=== PATIENT | female | born 1970 | race Two or more races ===

== ENCOUNTER 2019-11-09 15:44 | Inpatient (IN) | payer MEDICAID ==
[~2019-11-09] VITALS: Ht 149.9 cm; Wt 44.9 kg
[2019-11-09 15:46] VITALS: BP 112/64
--- NOTE | 2019-11-09 15:46 | NUR ---
ED Nurse Note: Patient brought in by RA29 from home c/o generalized weakness and hypotension (systolic 93). Per EMS, IIVF 500cc bolus given en route, BP improved. Pt also c/o dizziness and uncontrolled DM for the past few days, BS 290. Pt is on DM medication and insulin but missed dose today. Pt was recently dc from [facility] due to gallstones and mild pancreatitis. AAOx4, verbally responsive. No SOB. Afebrile. Pt placed on monitoring tech. ERMD at bedside.
--- NOTE | 2019-11-09 15:54 | Emergency Room Report ---
History of Present Illness General Chief Complaint: Generalized Weakness Source: Patient Present Illness HPI Disclaimer: Please note that this report is being documented using [employer] technology. This can lead to erroneous entry secondary to incorrect interpretation by the dictating instrument. HPI: 49-year-old female history of diabetes and gallstones presents for evaluation of weakness and unstable blood sugar readings. The patient states she was recently admitted to [facility] 3 days ago for symptomatic gallstones and mild pancreatitis. She was discharged and scheduled to follow- up with her PMD. She tested negative for COVID-19 on that hospitalization. Since leaving the hospital she notes persistent nausea, decreased appetite, generalized weakness. She felt lightheaded when standing but did not syncopized. Denies cough, fever, chills, vomiting, diarrhea. Abdominal pain improved. States her blood sugar has not been well controlled lately ranging from 70-550 over the past few days. She was found slightly hypotensive by EMS with systolics in the low 90s improved with a 500 cc bolus. Blood sugars were in the 230s. Denies head injury, headache, dysuria, hematuria. Denies drug or alcohol use. Denies vertiginous symptoms. Denies focal weakness. 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 EOMI. PERRLA. Anicteric sclera. Dry mucous membranes. Cardiovascular: Mild tachycardia. S1 and S2 normal. No murmur appreciated Resp: Normal work of breathing. No cough, wheezing or crackles appreciated Abdomen: Abdomen is soft, nondistended. Nontender Skin: Intact. No abrasions, laceration or rash over the exposed skin MSK: Normal tone and bulk. Moving all extremities. No obvious deformity. Neuro: Awake and alert. Mentating appropriately. Medical Decision Making Diagnostic Impression: Primary Impression: Hyperglycemia Additional Impressions: Uncontrolled diabetes mellitus VICTOR HUGO (acute kidney injury) Dehydration UTI (urinary tract infection) ER Course Is a 49-year-old female presenting for evaluation of generalized weakness and uncontrolled blood sugar levels over the past few days. Differential includes was not limited to dehydration, malnutrition, anemia, viral syndrome, hyperglycemia, hypoglycemia, electrolyte abnormality, DKA, HHS, pancreatitis, hypothyroidism, cholecystitis to name a few. Patient receiving IV fluids. She arrives tachycardic but blood pressures are within normal limits. EKG is nonischemic. Labs have returned showing hyperglycemia without anion gap, acute kidney injury consistent with hypovolemia from dehydration. Continue IV fluids. No evidence of DKA at this time. Chest x-ray unremarkable. Patient will be admitted to panel physicianSandra. 1725: Urinalysis consistent with an acute urinary tract infection. Patient treated with Rocephin and will send for culture and sensitivity. Admitting team updated. Laboratory Tests Test 11/09/19 16:00 11/09/19 16:02 11/09/19 16:52 White Blood Count 6.9 K/UL (4.8-10.8) Red Blood Count 4.02 M/UL (4.20-5.40) L Hemoglobin 11.4 G/DL (12.0-16.0) L Hematocrit 34.7 % (37.0-47.0) L Mean Corpuscular Volume 86 FL (80-99) Mean Corpuscular Hemoglobin 28.4 PG (27.0-31.0) Mean Corpuscular Hemoglobin Concent 32.9 G/DL (32.0-36.0) Red Cell Distribution Width 12.5 % (11.6-14.8) Platelet Count 344 K/UL (150-450) Mean Platelet Volume 6.7 FL (6.5-10.1) Neutrophils (%) (Auto) 57.3 % (45.0-75.0) Lymphocytes (%) (Auto) 32.5 % (20.0-45.0) Monocytes (%) (Auto) 8.0 % (1.0-10.0) Eosinophils (%) (Auto) 1.0 % (0.0-3.0) Basophils (%) (Auto) 1.1 % (0.0-2.0) Sodium Level 137 MMOL/L (136-145) Potassium Level 5.0 MMOL/L (3.5-5.1) Chloride Level 101 MMOL/L (98-107) Carbon Dioxide Level 26 MMOL/L (21-32) Anion Gap 10 mmol/L (5-15) Blood Urea Nitrogen 34 mg/dL (7-18) H Creatinine 1.6 MG/DL (0.55-1.30) H Estimated Glomerular Filtration Rate 34.0 mL/min (>60) Glucose Level 310 MG/DL (74-106) H Calcium Level 9.1 MG/DL (8.5-10.1) Phosphorus Level 5.0 MG/DL (2.5-4.9) H Magnesium Level 2.2 MG/DL (1.8-2.4) Total Bilirubin 0.3 MG/DL (0.2-1.0) Aspartate Amino Transferase (AST) 12 U/L (15-37) L Alanine Aminotransferase (ALT) 12 U/L (12-78) Alkaline Phosphatase 72 U/L (46-116) Troponin I 0.000 ng/mL (0.000-0.056) Total Protein 7.4 G/DL (6.4-8.2) Albumin 3.6 G/DL (3.4-5.0) Globulin 3.8 g/dL Albumin/Globulin Ratio 0.9 (1.0-2.7) L Lipase 304 U/L (73-393) Thyroid Stimulating Hormone (TSH) 1.286 uiU/mL (0.358-3.740) Serum Alcohol < 3 mg/dL Acetone Level Negative (NEGATIVE) POC Whole Blood Glucose 282 MG/DL (74-106) H Urine Color Pale yellow Urine Appearance Cloudy Urine pH 5 (4.5-8.0) Urine Specific [place] 1.015 (1.005-1.035) Urine Protein 2+ (NEGATIVE) H Urine Glucose (UA) 3+ (NEGATIVE) H Urine Ketones Negative (NEGATIVE) Urine Blood 2+ (NEGATIVE) H Urine Nitrite Negative (NEGATIVE) Urine Bilirubin Negative (NEGATIVE) Urine Urobilinogen Normal MG/DL (0.0-1.0) Urine Leukocyte Esterase 3+ (NEGATIVE) H Urine RBC 2-4 /HPF (0 - 2) H Urine WBC 20-30 /HPF (0 - 2) H Urine Squamous Epithelial Cells Many /LPF (NONE/OCC) H Urine Bacteria Many /HPF (NONE) H Urine Opiates Screen Negative (NEGATIVE) Urine Barbiturates Screen Negative (NEGATIVE) Phencyclidine (PCP) Screen Negative (NEGATIVE) Urine Amphetamines Screen Negative (NEGATIVE) Urine Benzodiazepines Screen Negative (NEGATIVE) Urine Cocaine Screen Negative (NEGATIVE) Urine Marijuana (THC) Screen Negative (NEGATIVE) EKG Diagnostic Results EKG Time: 15:52 Rate: tachycardiac Rhythm: NSR ST Segments: no acute changes Other Impression Sinus tachycardia, slight right axis. Normal intervals. QTc interval [address] segment changes. Rhythm Strip Diag. Results Rhythm Strip Time: 15:52 EP Interpretation: yes Rate: 103 Rhythm: NSR, no PVC's, no ectopy Chest X-Ray Diagnostic Results Chest X-Ray Diagnostic Results : Chest X-Ray Ordered: Yes # of Views/Limited/Complete: 1 View Indication: Other - Weakness EP Interpretation: Yes Interpretation: no consolidation, no effusion, no pneumothorax, no acute cardiopulmonary disease Impression: No acute disease Electronically Signed by: Electronically signed by Dr. Fantasma Null Last Vital Signs Date Time Temp Pulse Resp B/P (MAP) Pulse Ox O2 Delivery O2 Flow Rate FiO2 11/09/19 15:41 98.4 104 18 112/64 (80) 97 Room Air Disposition: ADMITTED INPATIENT Condition: Stable Fantasma Null MD Nov 09, 2019 15:54
--- NOTE | 2019-11-09 16:00 | NUR ---
ED Nurse Note: IV line established. Blood specimen collected and sent to lab.
--- NOTE | 2019-11-09 16:05 | NUR ---
ED Nurse Note: Xray at bedside.
--- NOTE | 2019-11-09 16:10 | NUR ---
ED Nurse Note: PT.'S SISTER LUCIO:
[2019-11-09 16:14] LABS: BASOPHILS % (AUTO) 1.1 % (0.0-2.0); HEMATOCRIT 34.7 % (37.0-47.0); HEMOGLOBIN 11.4 G/DL (12.0-16.0); LYMPHOCYTES % (AUTO) 32.5 % (20.0-45.0); MEAN CORPUSCULAR VOLUME 86 FL (80-99); NEUTROPHILS % (AUTO) 57.3 % (45.0-75.0); PLATELET COUNT 344 K/UL (150-450); RED BLOOD COUNT 4.02 M/UL (4.20-5.40); RED CELL DISTRIBUTION WIDTH 12.5 % (11.6-14.8); WHITE BLOOD COUNT 6.9 K/UL (4.8-10.8)
[2019-11-09 16:26] LABS: ANION GAP 10 mmol/L (5-15); BLOOD UREA NITROGEN 34 mg/dL (7-18); CALCIUM 9.1 MG/DL (8.5-10.1); CARBON DIOXIDE 26 MMOL/L (21-32); CHLORIDE 101 MMOL/L (98-107); CREATININE 1.6 MG/DL (0.55-1.30); SODIUM 137 MMOL/L (136-145)
[2019-11-09 16:39] LABS: ALANINE AMINOTRANSFERASE 12 U/L (12-78); ALBUMIN 3.6 G/DL (3.4-5.0); ALBUMIN/GLOBULIN RATIO 0.9 (1.0-2.7); ALKALINE PHOSPHATASE 72 U/L (46-116); ASPARTATE AMINO TRANSFERASE 12 U/L (15-37); BILIRUBIN,TOTAL 0.3 MG/DL (0.2-1.0)
--- NOTE | 2019-11-09 16:52 | NUR ---
ED Nurse Note: Urine specimen collected and sent to lab.
[2019-11-09 17:13] LABS: APPEARANCE,URINE CLOUDY; BILIRUBIN, URINE NEGATIVE (NEGATIVE); COLOR,URINE PALE YELLOW; GLUCOSE, URINE (UA) 3+ (NEGATIVE); KETONES,URINE NEGATIVE (NEGATIVE); LEUKOCYTE ESTERASE ,URINE 3+ (NEGATIVE); NITRITE,URINE NEGATIVE (NEGATIVE); PH,URINE 5 (4.5-8.0); PROTEIN,URINE 2+ (NEGATIVE); UROBILINOGEN,URINE NORMAL MG/DL (0.0-1.0)
[2019-11-09] MEDS ORDERED: cefTRIAXone 1 GM in NS 55 ML IVPB ONE (17:30)
[2019-11-09] MEDS ORDERED: NOVOLIN R100 UNIT/1 SUBQ (17:31)
[2019-11-09] MEDS ORDERED: SIMVASTATIN5 MG ORAL (17:31)
[2019-11-09] MEDS ORDERED: METFORMIN HCL500 M1 ORAL (17:31)
[2019-11-09] MEDS ORDERED: LISINOPRIL10 MG ORAL (17:31)
--- NOTE | 2019-11-09 17:50 | NUR ---
ED Nurse Note: Report given to Gregg MANCINI.
--- NOTE | 2019-11-09 17:55 | NUR ---
TRANSFER TO FLOOR: Patient transferred to [facility]. Report given to Gregg MANCINI. Pt AAOx4, verbally responsive. No SOB. IV line on left hand 18g patent and intact. No skin issues. Med recon done. All belongings sent with the patient.
--- NOTE | 2019-11-09 17:56 | Diagnostic Imaging Report ---
Indication: As pain Technique: One view of the chest Comparison: none Findings: Lungs and pleural spaces are clear. Heart size is normal. Impression: No acute process
--- NOTE | 2019-11-09 18:00 | NUR ---
NURSE NOTES: received report from ADDIS [place]. patient will be admitted to room 410-2 under [place],
--- NOTE | 2019-11-09 18:23 | NUR ---
NURSE NOTES: patient was admitted to room 410-2 via gurney from ER under [place]. Dx of uncontrolled DM, weakness. A&Ox4, verbally responsive. no respiratory distress noted on room air. no c/o pain at this time. BS 310 at ER. no s/sx of hyperglycemia at this time. c/o weak. IV on Left hand 18g. intact. Skin intact. no pressure injury noted. ambulatory. fall risk. sing on door. bed in the lowest position and locked. call light within reach. will continue to provide plan of care.
--- NOTE | 2019-11-09 18:55 | NUR ---
NURSE NOTES: Checked and counted belongings with patient. saul $119.
--- NOTE | 2019-11-09 18:55 | NUR ---
CHARGE NURSE NOTE: Spoke with ([facility]). He will put admission order soon.
[2019-11-09] MEDS ORDERED: Milk of Magnesia 30ml Ud ORAL PRN (19:00)
[2019-11-09] MEDS ORDERED: Metoclopramide 10mg/2ml Inj IVP PRN (19:00)
--- NOTE | 2019-11-09 19:22 | NUR ---
HAND-OFF: Report given to ADDIS Chavez.
[2019-11-09 20:00] VITALS: BP 126/77
--- NOTE | 2019-11-09 20:00 | NUR ---
NURSE NOTES: Patient received in bed, awake, orientedx4. C/o weakness, numbness and tingling on left leg. Bedside commode provided for patient d/t high fall risk. Patient stated she fell in the bathroom sitting down 7/6 because of sudden weakness in her leg. Attempted to reconcile home medication, patient does not remember the dosage of her medications. Patient is educated on fall risk, instructed to call for assistance prior to getting out of bed. Verbalized understanding. Call light and light cord within reach.
[2019-11-09] MEDS: Levemir Flexpen SUBQ SCH (20:34)
[2019-11-09] MEDS: NovoLOG Insulin Flexpen SUBQ SCH (20:34)
[2019-11-09] MEDS: Heparin 5000 units/ml inj SUBQ SCH (20:37)
[2019-11-09] MEDS ORDERED: NovoLOG Insulin Flexpen SUBQ SCH ×2 (21:00)
[2019-11-09 23:15] VITALS: BP 123/62
--- NOTE | 2019-11-09 23:53 | History and Physical ---
History of Present Illness General Reason for Hospitalization: Generalized Weakness Present Illness HPI A 49yo F with known history of diabetes reported to the hospital for generalized weakness and poor PO intake. She states for the past few days has been bed bound. She claims upon standing she gets dizzy and that is the reason she reported to the ED. She was found to have a suspected UTI in ED and give Rocephin. Her BG was 310 with a normal anion gap and bicarbonate. She was noted for tachycardia. Otherwise denies CP, SOB, Abdominal pain, Chills , fever, night sweats, or peripheral edema. Allergies: Coded Allergies: No Known Allergies (Unverified , 11/09/19) COVID-19 Screening Contact w/high risk pt: No Recent Travel to affected area: No Experienced COVID-19 symptoms?: No Medication History Scheduled Insulin Regular, Human* (Novolin R*), 0 SUBQ .SLIDING SCALE, (Reported) Lisinopril* (Lisinopril*), Unknown Dose ORAL DAILY, (Reported) Metformin Hcl* (Metformin Hcl*), Unknown Dose ORAL TWICE A DAY, (Reported) Simvastatin (Zocor), Unknown Dose ORAL BEDTIME, (Reported) Patient History Healthcare decision maker N Resuscitation status Advanced Directive on File Review of Systems Constitutional: Reports: weakness Eye: Reports: no symptoms ENT: Reports: no symptoms Respiratory: Reports: no symptoms Cardiovascular: Reports: no symptoms Gastrointestinal: Reports: no symptoms Genitourinary: Reports: dysuria Musculoskeletal: Reports: no symptoms Skin: Reports: no symptoms Psychiatric: Reports: no symptoms Neurological: Reports: no symptoms Endocrine: Reports: increased urine Physical Exam General Appearance: WD/WN, alert Lines, tubes and drains: peripheral HEENT: normocephalic, atraumatic Neck: non-tender, normal alignment Respiratory/Chest: chest wall non-tender, lungs clear Cardiovascular/Chest: normal peripheral pulses, tachycardia Abdomen: normal bowel sounds, non tender, soft Extremities: normal range of motion, non-tender, normal inspection, no calf tenderness Skin Exam: normal pigmentation 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 Last 24 Hour Vital Signs Date Time Temp Pulse Resp B/P (MAP) Pulse Ox O2 Delivery O2 Flow Rate FiO2 11/09/19 23:15 97.7 112 16 123/62 (82) 97 11/09/19 21:06 Room Air 11/09/19 20:00 97.3 113 16 126/77 (93) 100 11/09/19 17:55 98.4 106 19 122/59 98 Room Air 11/09/19 15:46 104 18 Room Air 11/09/19 15:46 98.4 104 18 112/64 97 Room Air 11/09/19 15:41 98.4 104 18 112/64 (80) 97 Room Air Laboratory Tests Test 11/09/19 16:00 11/09/19 16:02 11/09/19 16:52 White Blood Count 6.9 K/UL (4.8-10.8) Red Blood Count 4.02 M/UL (4.20-5.40) L Hemoglobin 11.4 G/DL (12.0-16.0) L Hematocrit 34.7 % (37.0-47.0) L Mean Corpuscular Volume 86 FL (80-99) Mean Corpuscular Hemoglobin 28.4 PG (27.0-31.0) Mean Corpuscular Hemoglobin Concent 32.9 G/DL (32.0-36.0) Red Cell Distribution Width 12.5 % (11.6-14.8) Platelet Count 344 K/UL (150-450) Mean Platelet Volume 6.7 FL (6.5-10.1) Neutrophils (%) (Auto) 57.3 % (45.0-75.0) Lymphocytes (%) (Auto) 32.5 % (20.0-45.0) Monocytes (%) (Auto) 8.0 % (1.0-10.0) Eosinophils (%) (Auto) 1.0 % (0.0-3.0) Basophils (%) (Auto) 1.1 % (0.0-2.0) Sodium Level 137 MMOL/L (136-145) Potassium Level 5.0 MMOL/L (3.5-5.1) Chloride Level 101 MMOL/L (98-107) Carbon Dioxide Level 26 MMOL/L (21-32) Anion Gap 10 mmol/L (5-15) Blood Urea Nitrogen 34 mg/dL (7-18) H Creatinine 1.6 MG/DL (0.55-1.30) H Estimat Glomerular Filtration Rate 34.0 mL/min (>60) Glucose Level 310 MG/DL (74-106) H Calcium Level 9.1 MG/DL (8.5-10.1) Phosphorus Level 5.0 MG/DL (2.5-4.9) H Magnesium Level 2.2 MG/DL (1.8-2.4) Total Bilirubin 0.3 MG/DL (0.2-1.0) Aspartate Amino Transf (AST/SGOT) 12 U/L (15-37) L Alanine Aminotransferase (ALT/SGPT) 12 U/L (12-78) Alkaline Phosphatase 72 U/L (46-116) Troponin I 0.000 ng/mL (0.000-0.056) Total Protein 7.4 G/DL (6.4-8.2) Albumin 3.6 G/DL (3.4-5.0) Globulin 3.8 g/dL Albumin/Globulin Ratio 0.9 (1.0-2.7) L Lipase 304 U/L (73-393) Thyroid Stimulating Hormone (TSH) 1.286 uiU/mL (0.358-3.740) Serum Alcohol < 3 mg/dL Acetone Level Negative (NEGATIVE) POC Whole Blood Glucose 282 MG/DL (74-106) H Urine Color Pale yellow Urine Appearance Cloudy Urine pH 5 (4.5-8.0) Urine Specific [place] 1.015 (1.005-1.035) Urine Protein 2+ (NEGATIVE) H Urine Glucose (UA) 3+ (NEGATIVE) H Urine Ketones Negative (NEGATIVE) Urine Blood 2+ (NEGATIVE) H Urine Nitrite Negative (NEGATIVE) Urine Bilirubin Negative (NEGATIVE) Urine Urobilinogen Normal MG/DL (0.0-1.0) Urine Leukocyte Esterase 3+ (NEGATIVE) H Urine RBC 2-4 /HPF (0 - 2) H Urine WBC 20-30 /HPF (0 - 2) H Urine Squamous Epithelial Cells Many /LPF (NONE/OCC) H Urine Bacteria Many /HPF (NONE) H Urine Opiates Screen Negative (NEGATIVE) Urine Barbiturates Screen Negative (NEGATIVE) Phencyclidine (PCP) Screen Negative (NEGATIVE) Urine Amphetamines Screen Negative (NEGATIVE) Urine Benzodiazepines Screen Negative (NEGATIVE) Urine Cocaine Screen Negative (NEGATIVE) Urine Marijuana (THC) Screen Negative (NEGATIVE) Microbiology Date/Time Source Procedure Growth Status 11/09/19 17:35 Rectum Received Height (Feet): 4 Height (Inches): 11.00 Weight (Pounds): 102 Medications Current Medications Medications (Trade) Dose Ordered Sig/Jayro Route PRN Reason Start Time Stop Time Status Last Admin Dose Admin Acetaminophen (Tylenol) 650 mg Q4H PRN ORAL Mild Pain (Pain Scale 1-3) 11/09/19 19:00 12/09/19 18:59 Acetaminophen (Tylenol) 650 mg Q4H PRN ORAL Temp >100.5 11/09/19 19:00 12/09/19 18:59 Dextrose (Dextrose 50%) 25 ml Q30M PRN IV Hypoglycemia 11/09/19 19:00 02/07/20 18:59 Dextrose (Dextrose 50%) 50 ml Q30M PRN IV Hypoglycemia 11/09/19 19:00 02/07/20 18:59 Heparin Sodium (Porcine) (Heparin 5000 units/ml) 5,000 units EVERY 12 HOURS SUBQ 11/09/19 21:00 12/24/19 20:59 Insulin Aspart (NovoLOG) BEFORE MEALS AND HS SUBQ 11/09/19 21:00 02/07/20 20:59 11/09/19 20:34 Insulin Aspart (NovoLOG) 5 units NOVOTIAC SUBQ 11/10/19 06:30 02/08/20 06:29 Insulin Detemir (Levemir) 15 units BEDTIME SUBQ 11/09/19 21:00 02/07/20 20:59 11/09/19 20:34 Magnesium Hydroxide (Mom) 30 ml HSPRN PRN ORAL Constipation 11/09/19 19:00 12/09/19 18:59 Metoclopramide HCl (Reglan) 10 mg Q6H PRN IVP Nausea & Vomiting 11/09/19 19:00 12/09/19 18:59 Sodium Chloride 1,000 ml @ 150 mls/hr Q6H40M IVLG 11/09/19 19:57 11/10/19 19:56 11/09/19 19:48 Assessment/Plan Problem List: (1) Uncontrolled diabetes mellitus Assessment & Plan: ORDERS - Continue on sliding scale - Obtain A1c - Continue IVF 150ml/hr overnight - Start gabapentin 100mg TID - Re examine in the morning ICD Codes: E11.65 - Type 2 diabetes mellitus with hyperglycemia SNOMED: 29261495, 386825978 (2) Weakness Assessment & Plan: Management as above. Per examination its non focal. Strength 4/5 globally. ICD Codes: R53.1 - Weakness SNOMED: 66332866 (3) Dehydration Assessment & Plan: management as above ICD Codes: E86.0 - Dehydration SNOMED: 15686860, 0588982 (4) UTI (urinary tract infection) Assessment & Plan: Note many sq epithelium. Await for cultures Since symptomatic continue to treat with rocephin. ICD Codes: N39.0 - Urinary tract infection, site not specified SNOMED: 81357207 (5) VICTOR HUGO (acute kidney injury) Assessment & Plan: managment as above ICD Codes: N17.9 - Acute kidney failure, unspecified SNOMED: 30522828, 7162273 Jairon Red D.O. Nov 09, 2019 23:53
--- NOTE | 2019-11-10 00:12 | NUR ---
NURSE NOTES: Patient seen by Dr. Red at bedside.
--- NOTE | 2019-11-10 03:17 | NUR ---
HAND-OFF: Report given to Sadie MANCINI. Addendum: 11/10/19 at 0317 by YURI FRANKLIN RN RN Endorsed patient as high fall risk. Bed alarm on, call light within reach.
--- NOTE | 2019-11-10 03:19 | NUR ---
NURSE NOTES: Received report on the patient from Kathy RN, patient is stable at this time, awake, alert and oriented x4, able to make her needs known, fall precautions are implemented, call light is within reach, bed is lowered, locked, alarm is on, will continue to monitor for comfort and safety.
[2019-11-10 04:00] VITALS: BP 128/74
[2019-11-10] MEDS: NovoLOG Insulin Flexpen SUBQ SCH ×7 (05:31→20:20)
[2019-11-10 06:29] LABS: BASOPHILS % (AUTO) 1.1 % (0.0-2.0); EOSINOPHILS % (AUTO) 1.7 % (0.0-3.0); HEMATOCRIT 32.5 % (37.0-47.0); HEMOGLOBIN 10.6 G/DL (12.0-16.0); LYMPHOCYTES % (AUTO) 36.9 % (20.0-45.0); MEAN CORPUSCULAR VOLUME 89 FL (80-99); MONOCYTES % (AUTO) 8.3 % (1.0-10.0); NEUTROPHILS % (AUTO) 52.1 % (45.0-75.0); PLATELET COUNT 338 K/UL (150-450); RED BLOOD COUNT 3.65 M/UL (4.20-5.40); RED CELL DISTRIBUTION WIDTH 11.5 % (11.6-14.8); WHITE BLOOD COUNT 5.9 K/UL (4.8-10.8)
[2019-11-10] MEDS ORDERED: Insulin NPH SUBQ SCH (06:30)
[2019-11-10 06:38] LABS: ALANINE AMINOTRANSFERASE 12 U/L (12-78); ALBUMIN 3.2 G/DL (3.4-5.0); ALBUMIN/GLOBULIN RATIO 0.9 (1.0-2.7); ALKALINE PHOSPHATASE 61 U/L (46-116); ANION GAP 8 mmol/L (5-15); ASPARTATE AMINO TRANSFERASE 9 U/L (15-37); BILIRUBIN,TOTAL 0.2 MG/DL (0.2-1.0); BLOOD UREA NITROGEN 17 mg/dL (7-18); CALCIUM 8.5 MG/DL (8.5-10.1); CARBON DIOXIDE 27 MMOL/L (21-32); CHLORIDE 108 MMOL/L (98-107); CREATININE 0.8 MG/DL (0.55-1.30); POTASSIUM 4.6 MMOL/L (3.5-5.1); SODIUM 143 MMOL/L (136-145)
--- NOTE | 2019-11-10 07:21 | NUR ---
HAND-OFF: Report given to Chuck MANCINI.
--- NOTE | 2019-11-10 07:48 | NUR ---
NURSE NOTES: Patient awake, alert x4; on room air, no sing of distress and shortness of breath; no sing of chest pain; IV Left-Hand NS @150cc running; bed side [place] within reach; per report patient complain of numbness on Left Left and MD aware; side rails up x2, breaks engaged, bed at lowest position; call light within reach; will keep monitoring blood sugar as scheduled;
[2019-11-10 08:00] VITALS: BP 152/75
[2019-11-10] MEDS: Heparin 5000 units/ml inj SUBQ SCH ×2 (09:02→20:19)
[2019-11-10] MEDS: Lisinopril 10mg tab ORAL SCH (09:13)
--- NOTE | 2019-11-10 11:33 | NUR ---
CASE MANAGEMENT: INITIAL REVIEW 49YR OLD FEMALE BIBA FROM HOME CC: GENERALIZED WEAKNESS; DIZZINESS SI:HYPERGLYCEMIA . UNCONTROLLED DM . UTI . VICTOR HUGO 98.5 104 18 112/64 97% ON RA BUN/CREAT 34/1.6 BG 310 PHOS 5.0 URINE CX + GRAM NEG BACILLUS IS: IVF NS BOLUS X2 IV ROCEPHIN X1 CHEST X-RAY- No acute process \: 4E MED SURG UNIT DCP:HOME WHEN STABLE CASE MANAGEMENT: REVIEW 11/10/19 SI:HYPERGLYCEMIA . UNCONTROLLED DM . UTI . VICTOR HUGO 98.7 100 19 152/75 99% ON RA HA1C 9.0 ALB 3.2 IS: IV NS @150ML/HR LISINOPRIL PO QD HEPARIN SQ BID NEURONTIN PO TID LEVEMIR SQ QHS \: 4E MED SURG UNIT DCP:HOME WHEN STABLE
[2019-11-10 12:00] VITALS: BP 139/62
--- NOTE | 2019-11-10 13:00 | Consultation ---
DATE OF CONSULTATION: 11/10/2019 ENDOCRINOLOGY CONSULTATION CONSULTING PHYSICIAN: Héctor Conway MD. REFERRING PHYSICIAN: Timo Flores MD. REASON FOR CONSULTATION: Diabetes management. HISTORY OF PRESENT ILLNESS: The patient is a 49-year-old female with history of diabetes, noncompliance, who presented to the hospital with generalized weakness and poor p.o. intake. The patient has been bedbound in the past few days, has been getting dizzy. She was found to have suspected UTI in the emergency department and started on Rocephin. Glucose was 310 without any evidence of diabetic ketoacidosis. The patient was tachycardic, started on IV fluid, admitted to the floor for observation and treatment, and I was called to manage diabetes. Last night, she was given Levemir 15 units. This morning, glucose is 86. PAST MEDICAL HISTORY: 1. Type 2 diabetes. 2. Hypertension. 3. Hyperlipidemia. PAST SURGICAL HISTORY: None. FAMILY HISTORY: No diabetes. SOCIAL HISTORY: Denies any smoking, alcohol, or drug use. REVIEW OF SYSTEMS: As per HPI. LABORATORY DATA: Sodium 137, potassium 5, chloride 101, bicarb 26, BUN 34, creatinine 1.6. Glucose of 310. TSH of 1.3. Lipase of 304. PHYSICAL EXAMINATION: VITAL SIGNS: Blood pressure 128/74, heart rate 99, respiratory rate of 18, temperature 98.7. HEENT: Pupils are equal and reactive to light. Sclerae are anicteric. NECK: No JVD. HEART: Regular. LUNGS: Clear. ABDOMEN: Positive bowel sounds. EXTREMITIES: No clubbing, cyanosis, or edema. DIAGNOSES: 1. Diabetes, out of control. 2. VICTOR HUGO. 3. UTI. 4. Noncompliance with medication. PLAN: 1. Continue with Levemir 15 units at bedtime. 2. Continue NovoLog 5 units before each meal. 3. Continue to hold oral hypoglycemic agents until the kidney is recovered with IV hydration. 4. Hypoglycemia protocol has been ordered. 5. Check hemoglobin A1c. 6. I will follow the patient closely during her hospital stay. Thank you, Dr. Flores, for the courtesy of this consultation. Héctor Conway M.D. DR: RODRI JOB#: [id number] CC: FIDENCIO
--- NOTE | 2019-11-10 14:22 | General Progress Note ---
Assessment/Plan Problem List: (1) UTI (urinary tract infection) ICD Codes: N39.0 - Urinary tract infection, site not specified SNOMED: 80892574 (2) VICTOR HUGO (acute kidney injury) ICD Codes: N17.9 - Acute kidney failure, unspecified SNOMED: 38625739, 7934834 (3) Hyperglycemia ICD Codes: R73.9 - Hyperglycemia, unspecified SNOMED: 58963105 (4) Weakness ICD Codes: R53.1 - Weakness SNOMED: 89280062 (5) Uncontrolled diabetes mellitus ICD Codes: E11.65 - Type 2 diabetes mellitus with hyperglycemia SNOMED: 43734308, 566414371 (6) Dehydration ICD Codes: E86.0 - Dehydration SNOMED: 32117667, 3869175 Status: doing well, stable, progressing Assessment/Plan: #Gram negative UTI #Weakness -Follow up culture speciation -Continue with Rocephin 1g q24 hours -Trend leukocytes # Uncontrolled DM # Hyperglycemia #Neuropathy -A1C is 9 -Iss -Levemir at bedtime -Patient education fo DM -Increase gapapentin to 300mg TID -Endocrine consult for outpatient medication recommendations. DVT ppx with subcue heparin Spen 35 min on this patient with 15 min face to face with pt eduction of Diabetes Subjective Date patient seen: Nov 10, 2019 Time patient seen: 11:00 Constitutional: Reports: no symptoms, malaise, weakness HEENT: Reports: no symptoms Cardiovascular: Reports: no symptoms Respiratory: Reports: no symptoms Genitourinary: Reports: frequency Neurologic/Psychiatric: Reports: no symptoms, paresthesia, tingling Endocrine: Reports: increased urine Hematologic/Lymphatic: Reports: no symptoms Allergies: Coded Allergies: No Known Allergies (Unverified , 11/09/19) All Systems: reviewed and negative except above Subjective Patient is feeling better since admission. Complains of some neuropathy in her feet. Objective Last 24 Hour Vital Signs Date Time Temp Pulse Resp B/P (MAP) Pulse Ox O2 Delivery O2 Flow Rate FiO2 11/10/19 12:00 97.9 100 19 139/62 (87) 99 11/10/19 09:13 152/75 11/10/19 09:00 Room Air 11/10/19 08:00 98.2 100 19 152/75 (100) 99 11/10/19 04:11 97.7 11/10/19 04:00 98.7 99 18 128/74 (92) 98 11/09/19 23:15 97.7 112 16 123/62 (82) 97 11/09/19 21:06 Room Air 11/09/19 20:00 97.3 113 16 126/77 (93) 100 11/09/19 17:55 98.4 106 19 122/59 98 Room Air 11/09/19 15:46 104 18 Room Air 11/09/19 15:46 98.4 104 18 112/64 97 Room Air 11/09/19 15:41 98.4 104 18 112/64 (80) 97 Room Air Intake and Output 11/09/19 11/10/19 19:00 07:00 Intake Total 4000 ml 1500 ml Balance 4000 ml 1500 ml Intake Oral 300 ml IV Total 4000 ml 1200 ml # Voids 3 # Bowel Movements 1 Laboratory Tests 11/09/19 16:00: White Blood Count 6.9, Red Blood Count 4.02L, Hemoglobin 11.4L, Hematocrit 34.7L , Mean Corpuscular Volume 86, Mean Corpuscular Hemoglobin 28.4, Mean Corpuscular Hemoglobin Concent 32.9, Red Cell Distribution Width 12.5, Platelet Count 344, Mean Platelet Volume 6.7, Neutrophils (%) (Auto) 57.3, Lymphocytes (% ) (Auto) 32.5, Monocytes (%) (Auto) 8.0, Eosinophils (%) (Auto) 1.0, Basophils ( %) (Auto) 1.1, Sodium Level 137, Potassium Level 5.0, Chloride Level 101, Carbon Dioxide Level 26, Anion Gap 10, Blood Urea Nitrogen 34H, Creatinine 1.6H , Estimat Glomerular Filtration Rate 34.0, Glucose Level 310H, Calcium Level 9.1 , Phosphorus Level 5.0H, Magnesium Level 2.2, Total Bilirubin 0.3, Aspartate Amino Transf (AST/SGOT) 12L, Alanine Aminotransferase (ALT/SGPT) 12, Alkaline Phosphatase 72, Troponin I 0.000, Total Protein 7.4, Albumin 3.6, Globulin 3.8, Albumin/Globulin Ratio 0.9L, Lipase 304, Thyroid Stimulating Hormone (TSH) 1.286 , Serum Alcohol < 3, Acetone Level Negative 11/09/19 16:02: POC Whole Blood Glucose 282H 11/09/19 16:52: Urine Color Pale yellow, Urine Appearance Cloudy, Urine pH 5, Urine Specific [place] 1.015, Urine Protein 2+H, Urine Glucose (UA) 3+H, Urine Ketones Negative , Urine Blood 2+H, Urine Nitrite Negative, Urine Bilirubin Negative, Urine Urobilinogen Normal, Urine Leukocyte Esterase 3+H, Urine RBC 2-4H, Urine WBC 20- 30H, Urine Squamous Epithelial Cells ManyH, Urine Bacteria ManyH, Urine Opiates Screen Negative, Urine Barbiturates Screen Negative, Phencyclidine (PCP) Screen Negative, Urine Amphetamines Screen Negative, Urine Benzodiazepines Screen Negative, Urine Cocaine Screen Negative, Urine Marijuana (THC) Screen Negative 11/09/19 18:32: POC Whole Blood Glucose 270H 11/09/19 20:32: POC Whole Blood Glucose 265H 11/10/19 05:30: POC Whole Blood Glucose 86, White Blood Count 5.9, Red Blood Count 3.65L, Hemoglobin 10.6L, Hematocrit 32.5L, Mean Corpuscular Volume 89, Mean Corpuscular Hemoglobin 29.0, Mean Corpuscular Hemoglobin Concent 32.6, Red Cell Distribution Width 11.5L, Platelet Count 338, Mean Platelet Volume 6.4L, Neutrophils (%) (Auto) 52.1, Lymphocytes (%) (Auto) 36.9, Monocytes (%) (Auto) 8.3, Eosinophils (%) (Auto) 1.7, Basophils (%) (Auto) 1.1, Sodium Level 143, Potassium Level 4.6, Chloride Level 108H, Carbon Dioxide Level 27, Anion Gap 8, Blood Urea Nitrogen 17, Creatinine 0.8, Estimat Glomerular Filtration Rate > 60 , Glucose Level 86#, Hemoglobin A1c 9.0H, Calcium Level 8.5, Total Bilirubin 0.2 , Aspartate Amino Transf (AST/SGOT) 9L, Alanine Aminotransferase (ALT/SGPT) 12, Alkaline Phosphatase 61, Total Protein 6.7, Albumin 3.2L, Globulin 3.5, Albumin/ Globulin Ratio 0.9L Height (Feet): 4 Height (Inches): 11.00 Weight (Pounds): 102 General Appearance: WD/WN, no apparent distress, alert, lethargic EENT: PERRL/EOMI, normal ENT inspection Neck: non-tender, normal alignment, supple Cardiovascular: normal rate, regular rhythm, no gallop/murmur, no JVD Respiratory/Chest: chest wall non-tender, lungs clear, normal breath sounds, no respiratory distress, no accessory muscle use Abdomen: normal bowel sounds, non tender, soft, no mass Pelvis: normal external exam Extremities: normal range of motion, non-tender, normal inspection Edema: no edema noted Arm (L), no edema noted Arm (R), no edema noted Leg (L), no edema noted Leg (R), no edema noted Pedal (L), no edema noted Pedal (R), no edema noted 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 Nov 10, 2019 14:22
--- NOTE | 2019-11-10 14:46 | NUR ---
P.T Note: P.T evaluation completed and tx initiated. Please refer to P.T evaluation for current functional status.
[2019-11-10 16:00] VITALS: BP 156/76
[2019-11-10] MEDS ORDERED: cefTRIAXone 1 GM in D5W 55 ML IVPB SCH (17:00)
--- NOTE | 2019-11-10 19:24 | NUR ---
HAND-OFF: Report given to ADDIS Solano. patient resting; call light and bed side Commod within reach;
[2019-11-10 20:00] VITALS: BP 134/70
--- NOTE | 2019-11-10 20:00 | NUR ---
NURSE NOTES: Patient sitting in chair, no complaints of pain, same c/o weakness on the leg. Assisted back to bed. Call light in reach. Will continue plan of care.
[2019-11-10] MEDS: Levemir Flexpen SUBQ SCH (20:20)
[2019-11-10 23:54] VITALS: BP 143/72
[2019-11-11 04:00] VITALS: BP 124/68
[2019-11-11] MEDS: NovoLOG Insulin Flexpen SUBQ SCH ×4 (06:22→11:58)
--- NOTE | 2019-11-11 06:47 | NUR ---
NURSE NOTES: Left message to Dr. Flores's exchange re: patient's AM blood sugar was 68 and rechecked 69... Patient was given juice and snacks. After 15 minutes, rechecked again and resulted 129. Patient does not have any hypoglycemic symptoms and is stable.
--- NOTE | 2019-11-11 07:13 | NUR ---
HAND-OFF: Report given to Dyana MANCINI.
--- NOTE | 2019-11-11 07:46 | NUR ---
NURSE NOTES: Patient alert x4; on room air, no sing of shortness of breath; no sing of chest pain; IV Left-Hand TKO; side rails up x2, breaks engaged, bed at lowest position; call light within reach; bed side Commode within reach; will keep monitoring.
[2019-11-11 08:00] VITALS: BP 126/79
[2019-11-11] MEDS: Lisinopril 10mg tab ORAL SCH (08:19)
[2019-11-11] MEDS: Heparin 5000 units/ml inj SUBQ SCH (08:21)
[2019-11-11 10:26] LABS: BASOPHILS % (AUTO) 1.2 % (0.0-2.0); HEMATOCRIT 33.3 % (37.0-47.0); HEMOGLOBIN 11.1 G/DL (12.0-16.0); LYMPHOCYTES % (AUTO) 29.7 % (20.0-45.0); MEAN CORPUSCULAR VOLUME 88 FL (80-99); MONOCYTES % (AUTO) 5.9 % (1.0-10.0); NEUTROPHILS % (AUTO) 62.2 % (45.0-75.0); PLATELET COUNT 350 K/UL (150-450); RED BLOOD COUNT 3.79 M/UL (4.20-5.40); RED CELL DISTRIBUTION WIDTH 11.4 % (11.6-14.8); WHITE BLOOD COUNT 5.3 K/UL (4.8-10.8)
[2019-11-11 10:27] LABS: ANION GAP 8 mmol/L (5-15); BLOOD UREA NITROGEN 9 mg/dL (7-18); CARBON DIOXIDE 28 MMOL/L (21-32); CHLORIDE 106 MMOL/L (98-107); CREATININE 0.8 MG/DL (0.55-1.30); POTASSIUM 4.3 MMOL/L (3.5-5.1); SODIUM 142 MMOL/L (136-145)
--- NOTE | 2019-11-11 10:34 | NUR ---
RD ASSESSMENT & RECOMMENDATIONS SEE CARE ACTIVITY FOR COMPLETE ASSESSMENT DAILY ESTIMATED NEEDS: Needs based on DM/ 45kg 25-30 kcals/kg 7071-7952 total kcals 1-1.3 g protein/kg 45-59 g total protein 25-30 mL/kg 5248-8172 total fluid mLs NUTRITION DIAGNOSIS: Altered nutrition related lab values R/T uncontrolled diabetes as evidenced by A1C of 9.0, BG 310 with U glu 3+ upon adm, +hypo and hyperglycemia, POC glu (69, 68, 156, 180) CURRENT DIET:[facility] MED PO DIET [facility]OMM[facility] + 1 carb snacks TID in b/w meals ADDITIONAL RECOMMENDATIONS: * Glucerna 1 tetra chula QD (added w/ dinner, pt may save it to have it as HS snack) * Encourage HS snack to prevent AM hypoglycemia * Consider lowering HS Levemir to prevent AM hypoglycemia * Standing wt * DM diet education and handout provided on 11/10
[2019-11-11] MEDS ORDERED: METFORMIN HCL1000 M1 ORAL (11:11)
[2019-11-11] MEDS ORDERED: MACROBID100 MG ORAL ×2 (11:11)
[2019-11-11] MEDS ORDERED: NEURONTIN300 MG ORAL (11:11)
[2019-11-11] MEDS ORDERED: ULTRA-LIGHT RO1 EACH MC (11:12)
--- NOTE | 2019-11-11 11:16 | Discharge Instructions ---
Discharge Instructions Discharge Instructions Services at Discharge: home health services Diet: diabetic calorie control Activity: light activity For Congestive Heart Failure Reminder Report to your physician any weight gain of 5 pounds or more in one week. Eric Wong M.D. Nov 11, 2019 11:16
[2019-11-11 12:00] VITALS: BP 139/71
--- NOTE | 2019-11-11 15:13 | NUR ---
NURSE NOTES: Printed package is ready to discharge this patient to home; patient stated that her son gonna pick her up after his so pick his kids from day care after 0400; Charge nurse, Elvis is aware;
--- NOTE | 2019-11-11 15:58 | NUR ---
NURSE NOTES: Patient discharge to Home; printed material regarding patient's visit, diagnosis and when to seek for medical help provided to patient; original medication prescription given to patient; Waker also provided to this patient; patient is stable upon discharge; IV access and name tag provided; belonging list crossed matched and signed by primary nurse and patient upon discharge; patient is stable upon discharge;
--- NOTE | 2019-11-11 16:00 | Discharge Summary ---
Discharge Summary Hospital Course Date of Admission Nov 09, 2019 at 16:32 Date of Discharge Nov 11, 2019 at 15:50 Admitting Diagnosis weakness, unconctrolled DM Reason for Hospitalization: UTI, uncontrolled DM HPI Consultations Endocrinology Hospital Course Aliyah Cartagena is a 49 year old female who was admitted on Nov 09, 2019 at 16:32 for Weakness,Uncontrolled Diabetes Mellitus she was found to have post sensitive e coli UTI. She improved with Rocephin. Patients blood sugars were controlled by endocrinology recommendations. She has new diabetic regiment and education was provided. She will follow with new PCP, endocrinology and ID. She was given new prescription of gabapentin for her neuropathy. She will be discharged with nitrofurantoin to complete 7 days of antibiotic for her UTI. PT evaluated her and she will be sent home with a walker. ED precautions given. Spen 35 min on this patient with 15 min face to face with pt eduction of Diabetes. Discharge Medications New Medications: Nitrofurantoin Monohyd/M-Cryst (Nitrofurantoin Haskell-Mcr 100 mg) 100 Mg Capsule 100 MG ORAL Q12H for 7 Days, #14 CAP Walker (Ultra-Light Rollator) 1 Each Each EACH MC, #1 Gabapentin (Neurontin) 300 Mg Capsule 300 MG ORAL THREE TIMES A DAY for 30 Days, #90 CAP Changed Medications: Metformin Hcl* (Metformin Hcl*) 1,000 Mg Tablet 1000 MG ORAL BID for 30 Days, #60 TAB (Changed from: Metformin Hcl* 500 Mg Tablet Unknown Dose ORAL TWICE A DAY DM) Continued Medications: Insulin Regular, Human* (Novolin R*) 100 Unit/1 Ml Vial 0 SUBQ .SLIDING SCALE for DM, UNITS (This prescription has been renewed) Lisinopril* (Lisinopril*) 10 Mg Tablet Unknown Dose ORAL DAILY for HTN, TAB (This prescription has been renewed) Simvastatin (Zocor) 5 Mg Tablet Unknown Dose ORAL BEDTIME for cholesterol, TAB (This prescription has been renewed) Discharge Condition Upon Discharge: stable Discharge Vital Signs Last Vital Signs Date Time Temp Pulse Resp B/P (MAP) Pulse Ox O2 Delivery O2 Flow Rate FiO2 11/11/19 12:00 98.2 105 18 139/71 (93) 98 11/11/19 09:00 Room Air Discharge Disposition Patient was discharged to home with son. Discharge Diagnoses: (1) UTI (urinary tract infection) (2) Uncontrolled diabetes mellitus (3) Weakness Discharge Instructions Discharge Instructions Services Upon Discharge: home health services Activity: light activity Eric Wong M.D. Nov 11, 2019 16:00
== END 2019-11-11 15:50 | disposition home or self-care (01) | DRG 420 ==
LOC: EDBD 15:44 → EMR 15:52 → 4E 16:32 → EDBEDREQ 17:23 → 4E 18:36
DX: E11.65 Type 2 diabetes mellitus with hyperglycemia (principal); N39.0 Urinary tract infection, site not specified; E86.0 Dehydration; N17.9 Acute kidney failure, unspecified; Z79.4 Long term (current) use of insulin; I10 Essential (primary) hypertension; E78.5 Hyperlipidemia, unspecified; Z91.14 Patient's other noncompliance with medication regimen; G62.9 Polyneuropathy, unspecified
CPT/HCPCS: 36415; 71045; 80048; 80053; 80307; 81003; 82009; 82962; 83036; 83690; 83735; 84100; 84443; 84484; 85025; 87081; 87086; 87181; 93005; 96361; 96365; 99285; G0480; J1815; J7030; S5561

== ENCOUNTER 2019-11-20 14:14 | Inpatient (IN) | payer MEDICAID ==
[~2019-11-20] VITALS: Ht 160 cm; Wt 44.9 kg
[~2019-11-20 14:14] MED LIST: LISINOPRIL10 MG ORAL; MACROBID100 MG ORAL; METFORMIN HCL1000 M1 ORAL; METFORMIN HCL500 M1 ORAL; NEURONTIN300 MG ORAL; NOVOLIN R100 UNIT/1 SUBQ; SIMVASTATIN5 MG ORAL; ULTRA-LIGHT RO1 EACH MC
--- NOTE | 2019-11-20 14:26 | Emergency Room Report ---
History of Present Illness General Chief Complaint: Generalized Weakness Source: Patient Present Illness HPI Patient presents after 2 syncopal episodes today. She felt nausea. She has christian right upper quadrant pain since August. She has been taking ibuprofen. The pain is 7/10 at the moment. She was experiencing the pain earlier today when she passed out. She denies vomiting or diarrhea on a regular basis. Her stools have been normal. She is on an antibiotic now for a urinary tract infection. Patient was admitted here November 10 for UTI and hyperglycemia with weakness. Patient has a history of diabetes, pancreatitis and allegedly gallstones. No fevers, chills, sore throat, chest pain, palpitations, shortness of breath, joint pain, rashes, depression, anxiety, visual changes, headache. 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 - 10/31/2019 COVID-19 Screening: Negative COVID-19 COVID-19 Testing Source: [facility]ARN Patient History Past Medical History: see triage record Social History: Denies: smoking, alcohol use, drug use Social History Narrative With family Last Menstrual Period: UNK Reviewed Nursing Documentation: PMH: Agreed; PSxH: Agreed Nursing Documentation-PMH Past Medical History: No History, Except For Hx Hypertension: Yes Hx Diabetes: Yes Review of Systems All Other Systems: negative except mentioned in HPI Physical Exam Vital Signs Date Time Temp Pulse Resp B/P (MAP) Pulse Ox O2 Delivery O2 Flow Rate FiO2 11/20/19 14:16 97.9 114 18 101/58 (72) 100 Room Air Sp02 EP Interpretation: reviewed, normal General Appearance: alert, other - Ill-appearing but not toxic Eyes: bilateral eye PERRL, bilateral eye EOMI, bilateral eye conjunctivae pale ENT: moist mucus membranes Neck: normal inspection, full range of motion, supple Respiratory: chest non-tender, lungs clear, normal breath sounds Cardiovascular #1: no edema, tachycardia Cardiovascular #2: 2+ radial (L) Gastrointestinal: normal bowel sounds, no guarding, no rebound, tenderness Genitourinary: no CVA tenderness Musculoskeletal: back normal, normal range of motion, no calf tenderness Neurologic: alert, oriented x3, grossly normal Psychiatric: depressed affect Skin: warm/dry, pallor Medical Decision Making Diagnostic Impression: Primary Impression: Syncope Qualified Codes: R55 - Syncope and collapse Additional Impressions: Transient hypotension Elevated lactic acid level ER Course Patient presents with syncopal episodes x2 today. Differential includes vasovagal, sepsis, acute myocardial infarction, volume depletion, anemia amongst others. This is a complex patient because the patient is a slightly poor historian and has comorbidities with a complex past medical history. With the right upper quadrant pain we need to exclude cholecystitis, peptic ulcer disease. Ultrasound is ordered. Rest of the work-up is EKG, x-ray and labs. Patient treated with IV hydration and repeat evaluations. Abdomen is not a surgical belly. Patient is treated with a small dose of morphine and Zofran. Patient's tachycardia slightly better but blood pressure low. Fluid bolus ordered. Low blood pressure may be related to morphine. Blood pressure better and heart rate less than 100 after fluid bolus. Labs with normal white count and slight anemia. Ultrasound with gallbladder polyp no evidence of cholecystitis. Lactic acid called at 1630. Value 2.7. Blood cultures ordered and Rocephin and Levaquin also ordered. Clinically patient is improving with fluids. Good capillary refill and blood pressure and heart rate both improved. Urine clear. Repeat lactic acid improved. Etiology of hypotension unclear. Etiology of elevated lactic acid unclear. Patient admitted for repeat evaluations, Laboratory Tests Test 11/20/19 14:24 11/20/19 17:00 11/20/19 17:22 White Blood Count 8.6 K/UL (4.8-10.8) Red Blood Count 3.90 M/UL (4.20-5.40) L Hemoglobin 11.3 G/DL (12.0-16.0) L Hematocrit 34.0 % (37.0-47.0) L Mean Corpuscular Volume 87 FL (80-99) Mean Corpuscular Hemoglobin 29.0 PG (27.0-31.0) Mean Corpuscular Hemoglobin Concent 33.3 G/DL (32.0-36.0) Red Cell Distribution Width 11.2 % (11.6-14.8) L Platelet Count 453 K/UL (150-450) H Mean Platelet Volume 6.0 FL (6.5-10.1) L Neutrophils (%) (Auto) 67.5 % (45.0-75.0) Lymphocytes (%) (Auto) 22.2 % (20.0-45.0) Monocytes (%) (Auto) 7.7 % (1.0-10.0) Eosinophils (%) (Auto) 1.5 % (0.0-3.0) Basophils (%) (Auto) 1.1 % (0.0-2.0) Prothrombin Time 10.6 SEC (9.30-11.50) Prothrombin Time INR 1.0 (0.9-1.1) Activated Partial Thromboplast Time 24 SEC (23-33) Sodium Level 140 MMOL/L (136-145) Potassium Level 4.0 MMOL/L (3.5-5.1) Chloride Level 102 MMOL/L (98-107) Carbon Dioxide Level 29 MMOL/L (21-32) Anion Gap 9 mmol/L (5-15) Blood Urea Nitrogen 17 mg/dL (7-18) Creatinine 1.1 MG/DL (0.55-1.30) Estimated Glomerular Filtration Rate 52.4 mL/min (>60) Glucose Level 118 MG/DL (74-106) H Hemoglobin A1c Pending Lactic Acid Level 2.70 mmol/L (0.4-2.0) H 1.10 mmol/L (0.66-2.22) Calcium Level 9.8 MG/DL (8.5-10.1) Magnesium Level 1.5 MG/DL (1.8-2.4) L Ferritin 56 NG/ML (8-388) Total Bilirubin 0.1 MG/DL (0.2-1.0) L Aspartate Amino Transferase (AST) 10 U/L (15-37) L Alanine Aminotransferase (ALT) 14 U/L (12-78) Alkaline Phosphatase 67 U/L (46-116) Total Creatine Kinase 33 U/L (26-308) Troponin I 0.000 ng/mL (0.000-0.056) C-Reactive Protein, Quantitative 0.8 mg/dL (0.00-0.90) Pro-B-Type Natriuretic Peptide Pending Total Protein 7.6 G/DL (6.4-8.2) Albumin 3.8 G/DL (3.4-5.0) Globulin 3.8 g/dL Albumin/Globulin Ratio 1.0 (1.0-2.7) Triglycerides Level Pending Cholesterol Level Pending LDL Cholesterol Pending HDL Cholesterol Pending Cholesterol/HDL Ratio Pending Lipase 318 U/L (73-393) Thyroid Stimulating Hormone (TSH) Pending Urine Color Yellow Urine Appearance Slightly cloudy Urine pH 5 (4.5-8.0) Urine Specific [place] 1.010 (1.005-1.035) Urine Protein 1+ (NEGATIVE) H Urine Glucose (UA) 4+ (NEGATIVE) H Urine Ketones Negative (NEGATIVE) Urine Blood Negative (NEGATIVE) Urine Nitrite Negative (NEGATIVE) Urine Bilirubin Negative (NEGATIVE) Urine Urobilinogen Normal MG/DL (0.0-1.0) Urine Leukocyte Esterase Negative (NEGATIVE) Urine RBC 0 /HPF (0 - 2) Urine WBC 0-2 /HPF (0 - 2) Urine Squamous Epithelial Cells Moderate /LPF (NONE/OCC) H Urine Bacteria Few /HPF (NONE) Urine Mucus Few /LPF (NONE/OCC) H EKG Diagnostic Results Rate: normal Rhythm: NSR ST Segments: no acute changes Rhythm Strip Diag. Results EP Interpretation: yes Rhythm: no PVC's, no ectopy, other - Sinus tachycardia Chest X-Ray Diagnostic Results Chest X-Ray Diagnostic Results : Chest X-Ray Ordered: Yes # of Views/Limited/Complete: 1 View Indication: Other EP Interpretation: Yes Interpretation: no consolidation, no effusion, no pneumothorax Impression: No acute disease Electronically Signed by: Electronically signed by Elvis Ponce MD CT/MRI/US Diagnostic Results CT/MRI/US Diagnostic Results : Imaging Test Ordered: Ultrasound abdomen Impression Gallbladder polyp Last Vital Signs Date Time Temp Pulse Resp B/P (MAP) Pulse Ox O2 Delivery O2 Flow Rate FiO2 11/20/19 18:01 97.5 89 20 98/58 (71) 98 11/20/19 18:00 Room Air Status: improved Disposition: ADMITTED INPATIENT Condition: Serious Elvis Ponce MD Nov 20, 2019 14:26
[2019-11-20 14:30] VITALS: BP 101/58
[2019-11-20] MEDS ORDERED: Morphine Sulfate 2mg/ml Inj(IV/IM USE ONLY) IVP ONE (14:30)
[2019-11-20 14:46] LABS: BASOPHILS % (AUTO) 1.1 % (0.0-2.0); EOSINOPHILS % (AUTO) 1.5 % (0.0-3.0); HEMOGLOBIN 11.3 G/DL (12.0-16.0); LYMPHOCYTES % (AUTO) 22.2 % (20.0-45.0); MEAN CORPUSCULAR VOLUME 87 FL (80-99); MONOCYTES % (AUTO) 7.7 % (1.0-10.0); NEUTROPHILS % (AUTO) 67.5 % (45.0-75.0); PLATELET COUNT 453 K/UL (150-450); RED CELL DISTRIBUTION WIDTH 11.2 % (11.6-14.8); WHITE BLOOD COUNT 8.6 K/UL (4.8-10.8)
--- NOTE | 2019-11-20 14:48 | Diagnostic Imaging Report ---
EXAM: XR Chest, 1 View CLINICAL HISTORY: SYNCOPE TECHNIQUE: Frontal view of the chest. COMPARISON: Chest radiograph on 11/09/2019 FINDINGS: Hardware: None. Lungs/pleura: Normal. No focal consolidation. No pleural effusion or pneumothorax. Heart/mediastinum: Normal. No cardiomegaly. Soft tissues: Unremarkable. Bones: No acute fracture. Upper abdomen: Normal. IMPRESSION: No acute disease identified.
[2019-11-20 14:57] LABS: ANION GAP 9 mmol/L (5-15); BLOOD UREA NITROGEN 17 mg/dL (7-18); CALCIUM 9.8 MG/DL (8.5-10.1); CARBON DIOXIDE 29 MMOL/L (21-32); CHLORIDE 102 MMOL/L (98-107); CREATININE 1.1 MG/DL (0.55-1.30); SODIUM 140 MMOL/L (136-145)
[2019-11-20 15:16] LABS: ALANINE AMINOTRANSFERASE 14 U/L (12-78); ALBUMIN 3.8 G/DL (3.4-5.0); ALKALINE PHOSPHATASE 67 U/L (46-116); ASPARTATE AMINO TRANSFERASE 10 U/L (15-37); BILIRUBIN,TOTAL 0.1 MG/DL (0.2-1.0); CREATINE KINASE 33 U/L (26-308); FERRITIN 56 NG/ML (8-388)
--- NOTE | 2019-11-20 15:43 | Diagnostic Imaging Report ---
EXAM: US Abdomen Complete CLINICAL HISTORY: ABD PAIN TECHNIQUE: Real-time ultrasound of the abdomen with image documentation. COMPARISON: No relevant prior studies available. FINDINGS: Liver: Liver diameter 13.5 cm. No visible parenchymal lesions. No intrahepatic biliary ductal dilatation. Gallbladder: 3 x 2 mm gallbladder polyp. No gallstones. No wall thickening. No pericholecystic fluid. Common bile duct: Common bile duct diameter 5.5 mm, within normal limits. Pancreas: Unremarkable as visualized. Pancreatic body and tail are obscured by bowel gas. Kidneys: Right kidney length of 11.4 cm. Left kidney length of 8.6 cm. Normal cortical thickness. No visible stones. No hydronephrosis. Spleen: Spleen length of 8.9 cm, within normal limits. Aorta: Unremarkable. Visualized portions appear unremarkable without evidence of aneurysm. Inferior vena cava: Unremarkable. Free fluid: None. IMPRESSION: 1. No acute findings. 2. 3 mm gallbladder polyp. Recommendations for 3 mm gallbladder polyp management: if the patient has risk factors* for gallbladder malignancy: follow- up ultrasound at 6 months, then yearly for 5 years. An increase in size = 2 mm: consider cholecystectomy if no risk factors for gallbladder malignancy: follow-up ultrasound at 1, 3 and 5 years *risk factors: >50 years, primary sclerosing cholangitis, [place] ethnicity, sessile polyp (including focal wall thickening >4 mm)
[2019-11-20 15:47] VITALS: BP 79/46
[2019-11-20] MEDS ORDERED: cefTRIAXone 1 GM in NS 55 ML IVPB ONE (16:30)
[2019-11-20 17:03] VITALS: BP 99/66
[2019-11-20 18:01] VITALS: BP 98/58
[2019-11-20 18:18] LABS: APPEARANCE,URINE SLIGHTLY CLOUDY; BILIRUBIN, URINE NEGATIVE (NEGATIVE); GLUCOSE, URINE (UA) 4+ (NEGATIVE); KETONES,URINE NEGATIVE (NEGATIVE); LEUKOCYTE ESTERASE ,URINE NEGATIVE (NEGATIVE); NITRITE,URINE NEGATIVE (NEGATIVE); PH,URINE 5 (4.5-8.0); PROTEIN,URINE 1+ (NEGATIVE); UROBILINOGEN,URINE NORMAL MG/DL (0.0-1.0)
[2019-11-20 18:19] LABS: COLOR,URINE YELLOW
[2019-11-20] MEDS ORDERED: Milk of Magnesia 30ml Ud ORAL PRN (19:15)
[2019-11-20] MEDS ORDERED: Metoclopramide 10mg/2ml Inj IVP PRN (19:15)
[2019-11-20] MEDS ORDERED: Miralax 17gm pkt ORAL PRN (19:15)
[2019-11-20 19:46] LABS: CHOLESTEROL 120 MG/DL (< 200); HDL CHOLESTEROL 37 MG/DL (40-60); TRIGLYCERIDES 73 MG/DL (30-150)
[2019-11-20 20:00] VITALS: BP 111/61
[2019-11-20] MEDS: NovoLOG Insulin Flexpen SUBQ SCH (21:00)
--- NOTE | 2019-11-20 21:18 | History and Physical ---
History of Present Illness General Reason for Hospitalization: Generalized Weakness Present Illness HPI A 49yo diabetic thin female who presents back after suffering syncope episodes. She has a pmhx significant for DMT2 on supplemental insulin with neuropathy. Patient states since discharge she has suffered three syncope episodes. Happens during positional changes. Associated with dizziness. + LOC. Denies loss of bladder/bowel. They are witnessed. No head trauma. She denies having a history prior to November 2019. She remains using a walker for ambulation. Her overall neuropathy pain improved on gabapentin. Claims completed her antibiotic given on discharge. Allergies: Coded Allergies: No Known Allergies (Unverified , 11/09/19) COVID-19 Screening Contact w/high risk pt: No Recent Travel to affected area: No Experienced COVID-19 symptoms?: No Medication History Scheduled Gabapentin (Neurontin), 300 MG ORAL THREE TIMES A DAY Insulin Regular, Human* (Novolin R*), 0 SUBQ .SLIDING SCALE, (Reported) Lisinopril* (Lisinopril*), Unknown Dose ORAL DAILY, (Reported) Metformin Hcl* (Metformin Hcl*), 1,000 MG ORAL BID Nitrofurantoin Monohyd/M-Cryst (Nitrofurantoin [place]-Mcr 100 mg), 100 MG ORAL Q12H Simvastatin (Zocor), Unknown Dose ORAL BEDTIME, (Reported) Durable Medical Equipment Walker (Ultra-Light Rollator), EACH , (DME) Patient History Healthcare decision maker Resuscitation status Advanced Directive on File Review of Systems Constitutional: Reports: weakness Eye: Reports: no symptoms ENT: Reports: no symptoms Respiratory: Reports: no symptoms Cardiovascular: Reports: no symptoms Gastrointestinal: Reports: nausea, vomiting Genitourinary: Reports: no symptoms Musculoskeletal: Reports: no symptoms Skin: Reports: no symptoms Psychiatric: Reports: no symptoms Neurological: Reports: no symptoms Endocrine: Reports: no symptoms Physical Exam General Appearance: WD/WN, no apparent distress, alert, thin HEENT: normocephalic, atraumatic Neck: non-tender, normal alignment, supple Respiratory/Chest: chest wall non-tender, lungs clear, normal breath sounds Cardiovascular/Chest: normal peripheral pulses, normal rate, regular rhythm Abdomen: normal bowel sounds, non tender Extremities: normal range of motion, non-tender, non-pitting, no edema Skin Exam: normal pigmentation, warm/dry 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, no motor/sensory deficits Last 24 Hour Vital Signs Date Time Temp Pulse Resp B/P (MAP) Pulse Ox O2 Delivery O2 Flow Rate FiO2 11/20/19 18:01 97.5 89 20 98/58 (71) 98 11/20/19 18:00 97.3 98 18 99/65 100 Room Air 11/20/19 17:03 97.9 99 18 99/66 100 Room Air 11/20/19 15:47 97.9 89 18 79/46 100 Room Air 11/20/19 15:03 97.9 11/20/19 14:30 97.9 110 18 101/58 100 Room Air 11/20/19 14:30 114 18 Room Air 11/20/19 14:16 97.9 114 18 101/58 (72) 100 Room Air Laboratory Tests Test 11/20/19 14:24 11/20/19 17:00 11/20/19 17:22 White Blood Count 8.6 K/UL (4.8-10.8) Red Blood Count 3.90 M/UL (4.20-5.40) L Hemoglobin 11.3 G/DL (12.0-16.0) L Hematocrit 34.0 % (37.0-47.0) L Mean Corpuscular Volume 87 FL (80-99) Mean Corpuscular Hemoglobin 29.0 PG (27.0-31.0) Mean Corpuscular Hemoglobin Concent 33.3 G/DL (32.0-36.0) Red Cell Distribution Width 11.2 % (11.6-14.8) L Platelet Count 453 K/UL (150-450) H Mean Platelet Volume 6.0 FL (6.5-10.1) L Neutrophils (%) (Auto) 67.5 % (45.0-75.0) Lymphocytes (%) (Auto) 22.2 % (20.0-45.0) Monocytes (%) (Auto) 7.7 % (1.0-10.0) Eosinophils (%) (Auto) 1.5 % (0.0-3.0) Basophils (%) (Auto) 1.1 % (0.0-2.0) Prothrombin Time 10.6 SEC (9.30-11.50) Prothromb Time International Ratio 1.0 (0.9-1.1) Activated Partial Thromboplast Time 24 SEC (23-33) Sodium Level 140 MMOL/L (136-145) Potassium Level 4.0 MMOL/L (3.5-5.1) Chloride Level 102 MMOL/L (98-107) Carbon Dioxide Level 29 MMOL/L (21-32) Anion Gap 9 mmol/L (5-15) Blood Urea Nitrogen 17 mg/dL (7-18) Creatinine 1.1 MG/DL (0.55-1.30) Estimat Glomerular Filtration Rate 52.4 mL/min (>60) Glucose Level 118 MG/DL (74-106) H Hemoglobin A1c 9.5 % (4.3-6.0) H Lactic Acid Level 2.70 mmol/L (0.4-2.0) H 1.10 mmol/L (0.66-2.22) Calcium Level 9.8 MG/DL (8.5-10.1) Magnesium Level 1.5 MG/DL (1.8-2.4) L Ferritin 56 NG/ML (8-388) Total Bilirubin 0.1 MG/DL (0.2-1.0) L Aspartate Amino Transf (AST/SGOT) 10 U/L (15-37) L Alanine Aminotransferase (ALT/SGPT) 14 U/L (12-78) Alkaline Phosphatase 67 U/L (46-116) Total Creatine Kinase 33 U/L (26-308) Troponin I 0.000 ng/mL (0.000-0.056) C-Reactive Protein, Quantitative 0.8 mg/dL (0.00-0.90) Pro-B-Type Natriuretic Peptide 34 pg/mL (0-125) Total Protein 7.6 G/DL (6.4-8.2) Albumin 3.8 G/DL (3.4-5.0) Globulin 3.8 g/dL Albumin/Globulin Ratio 1.0 (1.0-2.7) Triglycerides Level 73 MG/DL (30-150) Cholesterol Level 120 MG/DL (< 200) LDL Cholesterol 71 mg/dL (<100) HDL Cholesterol 37 MG/DL (40-60) L Cholesterol/HDL Ratio 3.2 (3.3-4.4) L Lipase 318 U/L (73-393) Thyroid Stimulating Hormone (TSH) 2.804 uiU/mL (0.358-3.740) Urine Color Yellow Urine Appearance Slightly cloudy Urine pH 5 (4.5-8.0) Urine Specific [place] 1.010 (1.005-1.035) Urine Protein 1+ (NEGATIVE) H Urine Glucose (UA) 4+ (NEGATIVE) H Urine Ketones Negative (NEGATIVE) Urine Blood Negative (NEGATIVE) Urine Nitrite Negative (NEGATIVE) Urine Bilirubin Negative (NEGATIVE) Urine Urobilinogen Normal MG/DL (0.0-1.0) Urine Leukocyte Esterase Negative (NEGATIVE) Urine RBC 0 /HPF (0 - 2) Urine WBC 0-2 /HPF (0 - 2) Urine Squamous Epithelial Cells Moderate /LPF (NONE/OCC) H Urine Bacteria Few /HPF (NONE) Urine Mucus Few /LPF (NONE/OCC) H Height (Feet): 5 Height (Inches): 3.00 Weight (Pounds): 99 Medications Current Medications Medications (Trade) Dose Ordered Sig/Jayro Route PRN Reason Start Time Stop Time Status Last Admin Dose Admin Acetaminophen (Tylenol) 650 mg Q4H PRN ORAL Mild Pain (Pain Scale 1-3) 11/20/19 19:15 12/20/19 19:14 Acetaminophen (Tylenol) 650 mg Q4H PRN ORAL Temp >100.5 11/20/19 19:15 12/20/19 19:14 Bisacodyl (Dulcolax) 10 mg HSPRN PRN RECTAL Constipation 11/20/19 19:15 02/18/20 19:14 Ceftriaxone Sodium 1 gm/ Dextrose 55 ml @ 110 mls/hr Q24H IVPB 11/21/19 09:00 11/28/19 08:59 Dextrose (Dextrose 50%) 25 ml Q30M PRN IV Hypoglycemia 11/20/19 19:15 02/18/20 19:14 Dextrose (Dextrose 50%) 50 ml Q30M PRN IV Hypoglycemia 11/20/19 19:15 02/18/20 19:14 Diphenhydramine HCl (Benadryl) 25 mg Q6H PRN ORAL Itching/Pruritis 11/20/19 19:15 12/20/19 19:14 Heparin Sodium (Porcine) (Heparin 5000 units/ml) 5,000 units EVERY 12 HOURS SUBQ 11/20/19 21:00 01/04/20 20:59 Insulin Aspart (NovoLOG) BEFORE MEALS AND HS SUBQ 11/20/19 21:00 02/18/20 20:59 Magnesium Hydroxide (Mom) 30 ml HSPRN PRN ORAL Constipation 11/20/19 19:15 12/20/19 19:14 Metoclopramide HCl (Reglan) 10 mg Q6H PRN IVP Nausea & Vomiting 11/20/19 19:15 12/20/19 19:14 Polyethylene Glycol (Miralax) 17 gm HSPRN PRN ORAL Constipation 11/20/19 19:15 12/20/19 19:14 Sodium Chloride 1,000 ml @ 100 mls/hr Q10H IVLG 11/20/19 20:07 11/21/19 20:06 Assessment/Plan Problem List: (1) Syncope Assessment & Plan: Remain on property assessment monitor IVF overnight (slight up tick of sCr/BUN) Defer on CT Brain without unilateral deficit or ROS detailing central origin Appears orthostatic hypotension in an uncontrolled diabetic Recheck orthostats thereafter IV hydration If remains + Florinef can help PT evaluation/treatment Does not appear patient has a recurrence of E. Coli UTI on UA await for culture (Received Rocephin x1) ICD Codes: R55 - Syncope and collapse SNOMED: 282233736 Qualifiers: Qualified Codes: R55 - Syncope and collapse (2) Acute kidney injury (nontraumatic) Assessment & Plan: as above ICD Codes: N17.9 - Acute kidney failure, unspecified SNOMED: 677954379337720 (3) Weakness Assessment & Plan: as above ICD Codes: R53.1 - Weakness SNOMED: 12398157 Jairon Red D.O. Nov 20, 2019 21:18
[2019-11-20] MEDS: Heparin 5000 units/ml inj SUBQ SCH (21:21)
[2019-11-21] VITALS: BP 112/57
[2019-11-21] MEDS: HYDROcodone/Acetamin 5/325 tab ORAL PRN ×2 (02:05→20:34)
[2019-11-21 04:00] VITALS: BP 121/60
[2019-11-21] MEDS: NovoLOG Insulin Flexpen SUBQ SCH ×4 (06:23→20:31)
[2019-11-21 07:21] LABS: BASOPHILS % (AUTO) 1.3 % (0.0-2.0); EOSINOPHILS % (AUTO) 1.8 % (0.0-3.0); HEMATOCRIT 31.1 % (37.0-47.0); HEMOGLOBIN 10.3 G/DL (12.0-16.0); LYMPHOCYTES % (AUTO) 39.3 % (20.0-45.0); MEAN CORPUSCULAR VOLUME 87 FL (80-99); MONOCYTES % (AUTO) 5.9 % (1.0-10.0); NEUTROPHILS % (AUTO) 51.7 % (45.0-75.0); PLATELET COUNT 354 K/UL (150-450); RED BLOOD COUNT 3.56 M/UL (4.20-5.40); RED CELL DISTRIBUTION WIDTH 11.4 % (11.6-14.8); WHITE BLOOD COUNT 6.2 K/UL (4.8-10.8)
[2019-11-21 07:38] LABS: ANION GAP 7 mmol/L (5-15); BLOOD UREA NITROGEN 16 mg/dL (7-18); CALCIUM 9.2 MG/DL (8.5-10.1); CARBON DIOXIDE 28 MMOL/L (21-32); CHLORIDE 106 MMOL/L (98-107); CREATININE 0.7 MG/DL (0.55-1.30); POTASSIUM 4.2 MMOL/L (3.5-5.1); SODIUM 141 MMOL/L (136-145)
[2019-11-21 08:00] VITALS: BP 129/69
[2019-11-21] MEDS: Heparin 5000 units/ml inj SUBQ SCH (08:36)
[2019-11-21] MEDS ORDERED: cefTRIAXone 1gm/D5W 55ml IVPB SCH ×2 (09:00)
[2019-11-21 09:40] LABS: % IRON SATURATION 18 % (15-50); IRON 51 ug/dL (50-175); TOTAL IRON BINDING CAPACITY 283 ug/dL (250-450)
--- NOTE | 2019-11-21 10:40 | General Progress Note ---
Assessment/Plan Problem List: (1) Orthostatic hypotension ICD Codes: I95.1 - Orthostatic hypotension SNOMED: 85527610 (2) Depressed affect ICD Codes: R45.89 - Other symptoms and signs involving emotional state SNOMED: 879395352 (3) RUQ abdominal pain ICD Codes: R10.11 - Right upper quadrant pain SNOMED: 049600825 (4) Elevated lactic acid level ICD Codes: R79.89 - Other specified abnormal findings of blood chemistry SNOMED: 0716713 (5) Uncontrolled diabetes mellitus ICD Codes: E11.65 - Type 2 diabetes mellitus with hyperglycemia SNOMED: 21549506, 988254428 Status: doing well, stable, progressing Assessment/Plan: 49 year old female with a PMH of uncontrolled DM, Neuropathy come to the ED for syncope. #Orthostatic hypotension #Poor PO intake - Orthostatic VS positive on admission - Fluid hydration - 2D Echo - EKG - Carotid US - Non contrast CT head - Consider fludracorizone or midodrine at a later time #Chronic RUQ pain #Gallbladder polyp -US preformed -LEFs normal -General Surgery consult #Normocytic Anemia #Unintentional Weight loss #Loss of appetite - Oncology work up - Iron Panel - Ordered ESR - Age appropriate screenings such as coloscopy - Consult to hematology oncology #Uncontrolled DM #Neuropathy -ISS -Carb consistent diet -Holding Gabapentin 300mg TID #Depression - Started on 10mg Lexapro - Consult to psychiatry SCD due to anemia evaluation PT Carb consistent diet Likely DC home wit family I spent 50 min on this patient with 20 min face to face. I preformed chart review and literature review. I coordinated whit many consultants. Discussed plan with RN. Subjective Date patient seen: Nov 21, 2019 Time patient seen: 10:14 ROS Limited/Unobtainable: No Constitutional: Reports: malaise, weakness HEENT: Reports: no symptoms Cardiovascular: Reports: no symptoms Gastrointestinal/Abdominal: Reports: abdominal pain, vomiting; Denies: black stools, tarry stools Genitourinary: Reports: no symptoms Neurologic/Psychiatric: Reports: no symptoms Hematologic/Lymphatic: Reports: anemia Allergies: Coded Allergies: No Known Allergies (Unverified , 11/09/19) All Systems: reviewed and negative except above Subjective Patient complains of RUQ pain that has been going on for a year. Objective Last 24 Hour Vital Signs Date Time Temp Pulse Resp B/P (MAP) Pulse Ox O2 Delivery O2 Flow Rate FiO2 11/21/19 08:00 90 11/21/19 08:00 98.2 89 20 129/69 (89) 96 11/21/19 04:00 97.3 93 22 121/60 (80) 99 11/21/19 04:00 90 11/21/19 00:00 97.9 97 22 112/57 (75) 100 11/21/19 00:00 116 11/20/19 22:28 Room Air 11/20/19 21:00 Room Air 11/20/19 20:00 96 11/20/19 20:00 97.7 89 20 111/61 (78) 95 11/20/19 18:01 97.5 89 20 98/58 (71) 98 11/20/19 18:00 97.3 98 18 99/65 100 Room Air 11/20/19 17:03 97.9 99 18 99/66 100 Room Air 11/20/19 15:47 97.9 89 18 79/46 100 Room Air 11/20/19 15:03 97.9 11/20/19 14:30 97.9 110 18 101/58 100 Room Air 11/20/19 14:30 114 18 Room Air 11/20/19 14:16 97.9 114 18 101/58 (72) 100 Room Air Intake and Output 11/20/19 11/21/19 19:00 07:00 Intake Total 900 ml Balance 900 ml Intake IV Total 500 ml Other 400 ml # Voids 1 3 Laboratory Tests 11/20/19 14:24: White Blood Count 8.6, Red Blood Count 3.90L, Hemoglobin 11.3L, Hematocrit 34.0L , Mean Corpuscular Volume 87, Mean Corpuscular Hemoglobin 29.0, Mean Corpuscular Hemoglobin Concent 33.3, Red Cell Distribution Width 11.2L, Platelet Count 453H, Mean Platelet Volume 6.0L, Neutrophils (%) (Auto) 67.5, Lymphocytes (%) (Auto) 22.2, Monocytes (%) (Auto) 7.7, Eosinophils (%) (Auto) 1.5, Basophils (%) (Auto) 1.1, Prothrombin Time 10.6, Prothromb Time International Ratio 1.0, Activated Partial Thromboplast Time 24, Sodium Level 140, Potassium Level 4.0, Chloride Level 102, Carbon Dioxide Level 29, Anion Gap 9, Blood Urea Nitrogen 17, Creatinine 1.1, Estimat Glomerular Filtration Rate 52.4, Glucose Level 118H, Hemoglobin A1c 9.5H, Lactic Acid Level 2.70H, Calcium Level 9.8, Magnesium Level 1.5L, Ferritin 56, Total Bilirubin 0.1L, Aspartate Amino Transf (AST/SGOT) 10L, Alanine Aminotransferase (ALT/SGPT) 14, Alkaline Phosphatase 67, Total Creatine Kinase 33, Troponin I 0.000, C-Reactive Protein, Quantitative 0.8, Pro-B-Type Natriuretic Peptide 34, Total Protein 7.6 , Albumin 3.8, Globulin 3.8, Albumin/Globulin Ratio 1.0, Triglycerides Level 73 , Cholesterol Level 120, LDL Cholesterol 71, HDL Cholesterol 37L, Cholesterol/ HDL Ratio 3.2L, Lipase 318, Thyroid Stimulating Hormone (TSH) 2.804 11/20/19 17:00: Lactic Acid Level 1.10 11/20/19 17:22: Urine Color Yellow, Urine Appearance Slightly cloudy, Urine pH 5, Urine Specific [place] 1.010, Urine Protein 1+H, Urine Glucose (UA) 4+H, Urine Ketones Negative, Urine Blood Negative, Urine Nitrite Negative, Urine Bilirubin Negative, Urine Urobilinogen Normal, Urine Leukocyte Esterase Negative, Urine RBC 0, Urine WBC 0-2, Urine Squamous Epithelial Cells ModerateH, Urine Bacteria Few, Urine Mucus FewH 11/20/19 20:52: POC Whole Blood Glucose 101 11/21/19 06:07: POC Whole Blood Glucose 143H 11/21/19 06:45: White Blood Count 6.2, Red Blood Count 3.56L, Hemoglobin 10.3L, Hematocrit 31.1L , Mean Corpuscular Volume 87, Mean Corpuscular Hemoglobin 28.9, Mean Corpuscular Hemoglobin Concent 33.1, Red Cell Distribution Width 11.4L, Platelet Count 354, Mean Platelet Volume 5.7L, Neutrophils (%) (Auto) 51.7, Lymphocytes (%) (Auto) 39.3, Monocytes (%) (Auto) 5.9, Eosinophils (%) (Auto) 1.8, Basophils (%) (Auto) 1.3, Sodium Level 141, Potassium Level 4.2, Chloride Level 106, Carbon Dioxide Level 28, Anion Gap 7, Blood Urea Nitrogen 16, Creatinine 0.7, Estimat Glomerular Filtration Rate > 60, Glucose Level 145H, Calcium Level 9.2, Iron Level 51, Total Iron Binding Capacity 283, Percent Iron Saturation 18, Unsaturated Iron Binding 232 11/21/19 06:48: Erythrocyte Sedimentation Rate [Pending] Height (Feet): 5 Height (Inches): 3.00 Weight (Pounds): 99 General Appearance: no apparent distress, alert, cachetic, alert oriented x3 EENT: PERRL/EOMI, normal ENT inspection Neck: non-tender, normal alignment, supple Cardiovascular: normal peripheral pulses, normal rate, regular rhythm, no gallop/murmur, no JVD Respiratory/Chest: lungs clear, normal breath sounds, no respiratory distress, no accessory muscle use Abdomen: normal bowel sounds, soft, no organomegaly, no mass, tender Pelvis: normal external exam Extremities: normal range of motion, non-tender Edema: no edema noted Arm (L), no edema noted Arm (R), no edema noted Leg (L), no edema noted Leg (R), no edema noted Pedal (L), no edema noted Pedal (R), no edema noted 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 Nov 21, 2019 10:40
[2019-11-21 11:58] VITALS: BP 137/69
--- NOTE | 2019-11-21 13:38 | Consultation ---
History of Present Illness General Date patient seen: Nov 21, 2019 Reason for Hospitalization: Generalized Weakness Present Illness HPI 49F noted to have gallbladder polyp on US after c/o abd pain. ruq pain for months. no n/v/f/c Allergies: Coded Allergies: No Known Allergies (Unverified , 11/09/19) COVID-19 Screening Contact w/high risk pt: No Recent Travel to affected area: No Experienced COVID-19 symptoms?: No Medication History Scheduled Gabapentin (Neurontin), 300 MG ORAL THREE TIMES A DAY Insulin Regular, Human* (Novolin R*), 0 SUBQ .SLIDING SCALE, (Reported) Lisinopril* (Lisinopril*), Unknown Dose ORAL DAILY, (Reported) Metformin Hcl* (Metformin Hcl*), 1,000 MG ORAL BID Simvastatin (Zocor), Unknown Dose ORAL BEDTIME, (Reported) Discontinued Medications Nitrofurantoin Monohyd/M-Cryst (Nitrofurantoin Daniels-Mcr 100 mg), 100 MG ORAL Q12H Discontinued Reason: Therapy completed Walker (Ultra-Light Rollator), EACH , (DME) Discontinued Reason: Therapy completed Patient History History Provided By: Patient, Medical Record, PMD Healthcare decision maker Resuscitation status Advanced Directive on File Past Medical/Surgical History Past Medical/Surgical History: (1) UTI (urinary tract infection) (2) Transient hypotension (3) Syncope (4) Weakness (5) Acute kidney injury (nontraumatic) (6) Orthostatic hypotension (7) RUQ abdominal pain (8) Uncontrolled diabetes mellitus (9) Elevated lactic acid level (10) Depressed affect Review of Systems Review of Symptoms General ROS: no weight loss or fever Psychological ROS: no depression or mood changes, no memory loss Ophthalmic ROS: no visual changes or eye irritation ENT ROS: no nasal congestion, hearing loss, dizziness Allergy and Immunology ROS: no allergic symptoms or urticaria Hematological and Lymphatic ROS: no swollen glands, unusual bleeding or bruising Endocrine ROS: no polyuria, polydipsia, weight changes, temperature intolerance Respiratory ROS: no cough, shortness of breath, or wheezing Cardiovascular ROS: no chest pain or dyspnea on exertion Gastrointestinal ROS: + abdominal pain, bright red blood in stool. Musculoskeletal ROS: no myalgias or arthralgias Neurological ROS: no TIA or stroke symptoms Dermatological ROS: no new or changing skin lesions, rashes or pruritis Physical Exam Physical Exam General appearance: alert, cooperative, no distress, appears stated age Head: Normocephalic, without obvious abnormality, atraumatic Eyes: conjunctivae/corneas clear. PERRL, EOM's intact. Fundi benign Throat: Lips, mucosa, and tongue normal. Teeth and gums normal Neck: supple, symmetrical, trachea midline, no adenopathy, thyroid: not enlarged, symmetric, no tenderness/mass/nodules, no carotid bruit and no JVD Lungs: clear to auscultation bilaterally Heart: regular rate and rhythm, S1, S2 normal, no murmur, click, rub or gallop Abdomen: soft, non-tender. Bowel sounds normal. No masses, no organomegaly. muscular right chest wall inferior margin pain sub costal ribs Extremities: extremities normal, atraumatic, no cyanosis or edema Pulses: 2+ and symmetric Skin: Skin color, texture, turgor normal. No rashes or lesions Neurologic: Grossly normal Last 24 Hour Vital Signs Date Time Temp Pulse Resp B/P (MAP) Pulse Ox O2 Delivery O2 Flow Rate FiO2 11/21/19 12:00 93 11/21/19 11:58 97.5 89 20 137/69 (91) 99 11/21/19 09:00 Room Air 11/21/19 08:00 90 11/21/19 08:00 98.2 89 20 129/69 (89) 96 11/21/19 04:00 97.3 93 22 121/60 (80) 99 11/21/19 04:00 90 11/21/19 00:00 97.9 97 22 112/57 (75) 100 11/21/19 00:00 116 11/20/19 22:28 Room Air 11/20/19 21:00 Room Air 11/20/19 20:00 96 11/20/19 20:00 97.7 89 20 111/61 (78) 95 11/20/19 18:01 97.5 89 20 98/58 (71) 98 11/20/19 18:00 97.3 98 18 99/65 100 Room Air 11/20/19 17:03 97.9 99 18 99/66 100 Room Air 11/20/19 15:47 97.9 89 18 79/46 100 Room Air 11/20/19 15:03 97.9 11/20/19 14:30 97.9 110 18 101/58 100 Room Air 11/20/19 14:30 114 18 Room Air 11/20/19 14:16 97.9 114 18 101/58 (72) 100 Room Air Intake and Output 11/20/19 11/21/19 19:00 07:00 Intake Total 900 ml Balance 900 ml Intake IV Total 500 ml Other 400 ml # Voids 1 3 Laboratory Tests Test 11/20/19 14:24 11/20/19 17:00 11/20/19 17:22 11/20/19 20:52 White Blood Count 8.6 K/UL (4.8-10.8) Red Blood Count 3.90 M/UL (4.20-5.40) L Hemoglobin 11.3 G/DL (12.0-16.0) L Hematocrit 34.0 % (37.0-47.0) L Mean Corpuscular Volume 87 FL (80-99) Mean Corpuscular Hemoglobin 29.0 PG (27.0-31.0) Mean Corpuscular Hemoglobin Concent 33.3 G/DL (32.0-36.0) Red Cell Distribution Width 11.2 % (11.6-14.8) L Platelet Count 453 K/UL (150-450) H Mean Platelet Volume 6.0 FL (6.5-10.1) L Neutrophils (%) (Auto) 67.5 % (45.0-75.0) Lymphocytes (%) (Auto) 22.2 % (20.0-45.0) Monocytes (%) (Auto) 7.7 % (1.0-10.0) Eosinophils (%) (Auto) 1.5 % (0.0-3.0) Basophils (%) (Auto) 1.1 % (0.0-2.0) Prothrombin Time 10.6 SEC (9.30-11.50) Prothromb Time International Ratio 1.0 (0.9-1.1) Activated Partial Thromboplast Time 24 SEC (23-33) Sodium Level 140 MMOL/L (136-145) Potassium Level 4.0 MMOL/L (3.5-5.1) Chloride Level 102 MMOL/L (98-107) Carbon Dioxide Level 29 MMOL/L (21-32) Anion Gap 9 mmol/L (5-15) Blood Urea Nitrogen 17 mg/dL (7-18) Creatinine 1.1 MG/DL (0.55-1.30) Estimat Glomerular Filtration Rate 52.4 mL/min (>60) Glucose Level 118 MG/DL (74-106) H Hemoglobin A1c 9.5 % (4.3-6.0) H Lactic Acid Level 2.70 mmol/L (0.4-2.0) H 1.10 mmol/L (0.66-2.22) Calcium Level 9.8 MG/DL (8.5-10.1) Magnesium Level 1.5 MG/DL (1.8-2.4) L Ferritin 56 NG/ML (8-388) Total Bilirubin 0.1 MG/DL (0.2-1.0) L Aspartate Amino Transf (AST/SGOT) 10 U/L (15-37) L Alanine Aminotransferase (ALT/SGPT) 14 U/L (12-78) Alkaline Phosphatase 67 U/L (46-116) Total Creatine Kinase 33 U/L (26-308) Troponin I 0.000 ng/mL (0.000-0.056) C-Reactive Protein, Quantitative 0.8 mg/dL (0.00-0.90) Pro-B-Type Natriuretic Peptide 34 pg/mL (0-125) Total Protein 7.6 G/DL (6.4-8.2) Albumin 3.8 G/DL (3.4-5.0) Globulin 3.8 g/dL Albumin/Globulin Ratio 1.0 (1.0-2.7) Triglycerides Level 73 MG/DL (30-150) Cholesterol Level 120 MG/DL (< 200) LDL Cholesterol 71 mg/dL (<100) HDL Cholesterol 37 MG/DL (40-60) L Cholesterol/HDL Ratio 3.2 (3.3-4.4) L Lipase 318 U/L (73-393) Thyroid Stimulating Hormone (TSH) 2.804 uiU/mL (0.358-3.740) Urine Color Yellow Urine Appearance Slightly cloudy Urine pH 5 (4.5-8.0) Urine Specific [place] 1.010 (1.005-1.035) Urine Protein 1+ (NEGATIVE) H Urine Glucose (UA) 4+ (NEGATIVE) H Urine Ketones Negative (NEGATIVE) Urine Blood Negative (NEGATIVE) Urine Nitrite Negative (NEGATIVE) Urine Bilirubin Negative (NEGATIVE) Urine Urobilinogen Normal MG/DL (0.0-1.0) Urine Leukocyte Esterase Negative (NEGATIVE) Urine RBC 0 /HPF (0 - 2) Urine WBC 0-2 /HPF (0 - 2) Urine Squamous Epithelial Cells Moderate /LPF (NONE/OCC) H Urine Bacteria Few /HPF (NONE) Urine Mucus Few /LPF (NONE/OCC) H POC Whole Blood Glucose 101 MG/DL (74-106) Test 11/21/19 06:07 11/21/19 06:45 11/21/19 06:48 11/21/19 11:20 POC Whole Blood Glucose 143 MG/DL (74-106) H Pending White Blood Count 6.2 K/UL (4.8-10.8) Red Blood Count 3.56 M/UL (4.20-5.40) L Hemoglobin 10.3 G/DL (12.0-16.0) L Hematocrit 31.1 % (37.0-47.0) L Mean Corpuscular Volume 87 FL (80-99) Mean Corpuscular Hemoglobin 28.9 PG (27.0-31.0) Mean Corpuscular Hemoglobin Concent 33.1 G/DL (32.0-36.0) Red Cell Distribution Width 11.4 % (11.6-14.8) L Platelet Count 354 K/UL (150-450) Mean Platelet Volume 5.7 FL (6.5-10.1) L Neutrophils (%) (Auto) 51.7 % (45.0-75.0) Lymphocytes (%) (Auto) 39.3 % (20.0-45.0) Monocytes (%) (Auto) 5.9 % (1.0-10.0) Eosinophils (%) (Auto) 1.8 % (0.0-3.0) Basophils (%) (Auto) 1.3 % (0.0-2.0) Sodium Level 141 MMOL/L (136-145) Potassium Level 4.2 MMOL/L (3.5-5.1) Chloride Level 106 MMOL/L (98-107) Carbon Dioxide Level 28 MMOL/L (21-32) Anion Gap 7 mmol/L (5-15) Blood Urea Nitrogen 16 mg/dL (7-18) Creatinine 0.7 MG/DL (0.55-1.30) Estimat Glomerular Filtration Rate > 60 mL/min (>60) Glucose Level 145 MG/DL (74-106) H Calcium Level 9.2 MG/DL (8.5-10.1) Iron Level 51 ug/dL (50-175) Total Iron Binding Capacity 283 ug/dL (250-450) Percent Iron Saturation 18 % (15-50) Unsaturated Iron Binding 232 ug/dL (112-346) Erythrocyte Sedimentation Rate 33 MM/HR (0-30) H Height (Feet): 5 Height (Inches): 3.00 Weight (Pounds): 99 Medications Current Medications Medications (Trade) Dose Ordered Sig/Jayro Route PRN Reason Start Time Stop Time Status Last Admin Dose Admin Acetaminophen (Tylenol) 650 mg Q4H PRN ORAL Mild Pain (Pain Scale 1-3) 11/20/19 19:15 12/20/19 19:14 11/20/19 22:48 Acetaminophen (Tylenol) 650 mg Q4H PRN ORAL Temp >100.5 11/20/19 19:15 12/20/19 19:14 Acetaminophen/ Hydrocodone Bitart ([place] 5/325) 1 tab Q8H PRN ORAL Moderate Pain (Pain Scale 4-6) 11/20/19 23:15 11/27/19 23:14 11/21/19 02:05 Bisacodyl (Dulcolax) 10 mg HSPRN PRN RECTAL Constipation 11/20/19 19:15 02/18/20 19:14 Dextrose (Dextrose 50%) 25 ml Q30M PRN IV Hypoglycemia 11/20/19 19:15 02/18/20 19:14 Dextrose (Dextrose 50%) 50 ml Q30M PRN IV Hypoglycemia 11/20/19 19:15 02/18/20 19:14 Diphenhydramine HCl (Benadryl) 25 mg Q6H PRN ORAL Itching/Pruritis 11/20/19 19:15 12/20/19 19:14 Escitalopram Oxalate (Lexapro) 10 mg DAILY ORAL 11/21/19 10:15 12/21/19 10:14 11/21/19 11:22 Insulin Aspart (NovoLOG) BEFORE MEALS AND HS SUBQ 11/20/19 21:00 02/18/20 20:59 11/21/19 11:24 Magnesium Hydroxide (Mom) 30 ml HSPRN PRN ORAL Constipation 11/20/19 19:15 12/20/19 19:14 Metoclopramide HCl (Reglan) 10 mg Q6H PRN IVP Nausea & Vomiting 11/20/19 19:15 12/20/19 19:14 Polyethylene Glycol (Miralax) 17 gm HSPRN PRN ORAL Constipation 11/20/19 19:15 12/20/19 19:14 Sodium Chloride 1,000 ml @ 100 mls/hr Q10H IVLG 11/20/19 20:07 11/21/19 20:06 11/21/19 06:22 Assessment/Plan Problem List: (1) Syncope ICD Codes: R55 - Syncope and collapse SNOMED: 158203614 Qualifiers: Qualified Codes: R55 - Syncope and collapse (2) Weakness ICD Codes: R53.1 - Weakness SNOMED: 78106164 (3) Acute kidney injury (nontraumatic) ICD Codes: N17.9 - Acute kidney failure, unspecified SNOMED: 531096193006211 (4) Orthostatic hypotension ICD Codes: I95.1 - Orthostatic hypotension SNOMED: 81519220 (5) RUQ abdominal pain Assessment & Plan: DAILY ESTIMATED NEEDS: Needs based on DM/ 45kg 25-30 kcals/kg 2043-3563 total kcals 1-1.5 g protein/kg 45-68 g total protein 25-30 mL/kg 5702-2290 total fluid mLs NUTRITION DIAGNOSIS: Altered nutrition related lab values R/T uncontrolled diabetes as evidenced by A1C of 9.5, w/ recent adm(11/08-11/10) A1C 9.0, w/ BG 310, U glu 3+, +hypo and hyperglycemia, POC glu (69, 68, 156, 180), no bed side BG noted at this time. CURRENT DIET: CCHO LOW PO DIET RECOMMENDATIONS: CCHO LOW + 1 carb snacks TID in b/w meals ADDITIONAL RECOMMENDATIONS: * Glucerna 1 tetra chula QD (added w/ dinner, pt may save it to have it as HS snack) * Encourage HS snack to prevent AM hypoglycemia * Rec bed side BG checks, h/o hypoglycemia * Standing wt and height as able (stated ht 4'11") * DM diet education and handout provided on recent adm 11/10 ICD Codes: R10.11 - Right upper quadrant pain SNOMED: 412276881 (6) Uncontrolled diabetes mellitus ICD Codes: E11.65 - Type 2 diabetes mellitus with hyperglycemia SNOMED: 69029328, 890989728 (7) Elevated lactic acid level ICD Codes: R79.89 - Other specified abnormal findings of blood chemistry SNOMED: 2638714 (8) Depressed affect ICD Codes: R45.89 - Other symptoms and signs involving emotional state SNOMED: 954207083 (9) UTI (urinary tract infection) ICD Codes: N39.0 - Urinary tract infection, site not specified SNOMED: 07470618 (10) Transient hypotension ICD Codes: I95.9 - Hypotension, unspecified SNOMED: 73777015962409 (11) Gallbladder polyp Assessment & Plan: Liver: Liver diameter 13.5 cm. No visible parenchymal lesions. No intrahepatic biliary ductal dilatation. Gallbladder: 3 x 2 mm gallbladder polyp. No gallstones. No wall thickening. No pericholecystic fluid. Common bile duct: Common bile duct diameter 5.5 mm, within normal limits. Pancreas: Unremarkable as visualized. Pancreatic body and tail are obscured by bowel gas. Kidneys: Right kidney length of 11.4 cm. Left kidney length of 8.6 cm. Normal cortical thickness. No visible stones. No hydronephrosis. Spleen: Spleen length of 8.9 cm, within normal limits. Aorta: Unremarkable. Visualized portions appear unremarkable without evidence of aneurysm. Inferior vena cava: Unremarkable. Free fluid: None. IMPRESSION: 1. No acute findings. 2. 3 mm gallbladder polyp. Recommendations for 3 mm gallbladder polyp management: if the patient has risk factors* for gallbladder malignancy: follow- up ultrasound at 6 months, then yearly for 5 years. An increase in size = 2 mm: consider cholecystectomy if no risk factors for gallbladder malignancy: follow-up ultrasound at 1, 3 and 5 years *risk factors: >50 years, primary sclerosing cholangitis, ethnicity, sessile polyp (including focal wall thickening >4 mm) ICD Codes: K82.4 - Cholesterolosis of gallbladder SNOMED: 962518521 Dayron Smith Nov 21, 2019 13:37
[2019-11-21 16:00] VITALS: BP 137/67
[2019-11-21 20:00] VITALS: BP 139/64
[2019-11-22] VITALS: BP 135/80
[2019-11-22 04:00] VITALS: BP 138/80
[2019-11-22] MEDS: NovoLOG Insulin Flexpen SUBQ SCH ×4 (06:01→20:12)
[2019-11-22 06:53] LABS: BASOPHILS % (AUTO) 1.1 % (0.0-2.0); EOSINOPHILS % (AUTO) 1.6 % (0.0-3.0); HEMOGLOBIN 10.3 G/DL (12.0-16.0); LYMPHOCYTES % (AUTO) 38.5 % (20.0-45.0); MEAN CORPUSCULAR VOLUME 86 FL (80-99); MONOCYTES % (AUTO) 5.5 % (1.0-10.0); NEUTROPHILS % (AUTO) 53.2 % (45.0-75.0); PLATELET COUNT 356 K/UL (150-450); RED BLOOD COUNT 3.59 M/UL (4.20-5.40); WHITE BLOOD COUNT 4.4 K/UL (4.8-10.8)
[2019-11-22 07:51] LABS: ALANINE AMINOTRANSFERASE 13 U/L (12-78); ALBUMIN 3.4 G/DL (3.4-5.0); ALKALINE PHOSPHATASE 60 U/L (46-116); AMYLASE 52 U/L (25-115); ANION GAP 10 mmol/L (5-15); ASPARTATE AMINO TRANSFERASE 9 U/L (15-37); BILIRUBIN,TOTAL 0.2 MG/DL (0.2-1.0); BLOOD UREA NITROGEN 7 mg/dL (7-18); CARBON DIOXIDE 26 MMOL/L (21-32); CHLORIDE 101 MMOL/L (98-107); CREATININE 0.6 MG/DL (0.55-1.30); SODIUM 137 MMOL/L (136-145)
[2019-11-22 08:00] VITALS: BP 149/71
[2019-11-22] MEDS ORDERED: LR 1000ml 1,000 ML IV SCH (11:00)
--- NOTE | 2019-11-22 11:51 | Diagnostic Imaging Report ---
Indications: Syncope Technique: Spiral acquisitions obtained through the brain. Angled axial and coronal 5 x 5 mm slices were reconstructed. Total dose length product 965 mGycm. CTDI vol(s) 53 mGy. Dose reduction achieved using automated exposure control Comparison: None. Findings: No acute intracranial hemorrhage or edema. No mass effect nor midline shift. Normal tong-white differentiation. Normal size ventricles and extra axial CSF spaces. Intact calvarium. The mastoids are clear. The visualized orbits and sinuses are unremarkable Impression: Negative The CT scanner at [facility] is accredited by the [employer] and the scans are performed using protocols designed to limit radiation exposure to as low as reasonably achievable to attain images of sufficient resolution adequate for diagnostic evaluation.
--- NOTE | 2019-11-22 11:53 | General Progress Note ---
Assessment/Plan Problem List: (1) Orthostatic hypotension ICD Codes: I95.1 - Orthostatic hypotension SNOMED: 90423167 (2) Depressed affect ICD Codes: R45.89 - Other symptoms and signs involving emotional state SNOMED: 131003911 (3) RUQ abdominal pain ICD Codes: R10.11 - Right upper quadrant pain SNOMED: 949355551 (4) Uncontrolled diabetes mellitus ICD Codes: E11.65 - Type 2 diabetes mellitus with hyperglycemia SNOMED: 56209060, 061422528 Status: doing well, stable, progressing Assessment/Plan: 49 year old female with a PMH of uncontrolled DM, Neuropathy come to the ED for syncope. #Orthostatic hypotension - possible autonomic dysfunction #Poor PO intake - Orthostatic VS continue to be positive after fluids - Fluid hydration - 2D Echo - unremarkable despite pHTN - EKG - reviewed - Carotid US -pending - Consider fludrocortisone or midodrine at a later time -Consult to cardiology #Chronic RUQ pain #Gallbladder polyp -US preformed -LEFs normal -General Surgery consult - follow up US in 6 months #Normocytic Anemia #Unintentional Weight loss #Loss of appetite - Oncology work up - Iron Panel -reviewed - ESR elevated - Age appropriate screenings such as coloscopy - Consult to hematology oncology #Uncontrolled DM #Neuropathy -ISS -Carb consistent diet -Holding Gabapentin 300mg TID #Depression - Started on 10mg Lexapro - Consult to psychiatry SCD due to anemia evaluation PT Carb consistent diet Likely DC home wit family I spent 50 min on this patient with 20 min face to face. I preformed chart review and literature review. I coordinated whit many consultants. Discussed plan with RN. Subjective Date patient seen: Nov 22, 2019 Time patient seen: 09:00 ROS Limited/Unobtainable: No Constitutional: Reports: malaise HEENT: Reports: no symptoms Cardiovascular: Reports: no symptoms Respiratory: Reports: no symptoms Gastrointestinal/Abdominal: Reports: no symptoms Genitourinary: Reports: no symptoms Neurologic/Psychiatric: Reports: depressed, emotional problems, numbness, paresthesia, weakness Endocrine: Reports: no symptoms Hematologic/Lymphatic: Reports: anemia Allergies: Coded Allergies: No Known Allergies (Unverified , 11/09/19) Subjective Patient has no complaints today. Still feeling down. No SI. Objective Last 24 Hour Vital Signs Date Time Temp Pulse Resp B/P (MAP) Pulse Ox O2 Delivery O2 Flow Rate FiO2 11/22/19 09:36 98.4 11/22/19 09:00 Room Air 11/22/19 08:00 100.8 118 18 149/71 (97) 98 11/22/19 08:00 96 11/22/19 04:00 97.7 95 17 138/80 (99) 98 11/22/19 04:00 93 11/22/19 00:00 97.9 102 20 135/80 (98) 97 11/22/19 00:00 94 11/21/19 21:00 Room Air 11/21/19 20:00 97.9 92 19 139/64 (89) 97 11/21/19 20:00 98 11/21/19 16:38 85 86 92 11/21/19 16:00 98.4 85 20 137/67 (90) 99 11/21/19 12:00 93 11/21/19 11:58 97.5 89 20 137/69 (91) 99 Intake and Output 11/21/19 11/22/19 19:00 07:00 Intake Total 1600 ml 360 ml Balance 1600 ml 360 ml Intake Oral 600 ml 360 ml IV Total 1000 ml # Voids 3 2 Laboratory Tests 11/21/19 16:08: POC Whole Blood Glucose 243H 11/21/19 20:19: POC Whole Blood Glucose 201H 11/22/19 05:29: POC Whole Blood Glucose 215H 11/22/19 05:40: White Blood Count 4.4L, Red Blood Count 3.59L, Hemoglobin 10.3L, Hematocrit 31.0L, Mean Corpuscular Volume 86, Mean Corpuscular Hemoglobin 28.6, Mean Corpuscular Hemoglobin Concent 33.1, Red Cell Distribution Width 11.0L, Platelet Count 356, Mean Platelet Volume 5.8L, Neutrophils (%) (Auto) 53.2, Lymphocytes (%) (Auto) 38.5, Monocytes (%) (Auto) 5.5, Eosinophils (%) (Auto) 1.6, Basophils (%) (Auto) 1.1, Erythrocyte Sedimentation Rate 41H, Prothrombin Time 10.7, Prothromb Time International Ratio 1.0, Activated Partial Thromboplast Time 27, Sodium Level 137, Potassium Level 4.0, Chloride Level 101 , Carbon Dioxide Level 26, Anion Gap 10, Blood Urea Nitrogen 7, Creatinine 0.6, Estimat Glomerular Filtration Rate > 60, Glucose Level 210H, Calcium Level 9.0, Total Bilirubin 0.2, Aspartate Amino Transf (AST/SGOT) 9L, Alanine Aminotransferase (ALT/SGPT) 13, Alkaline Phosphatase 60, C-Reactive Protein, Quantitative 0.6, Total Protein 6.9, Albumin 3.4, Globulin 3.5, Albumin/ Globulin Ratio 1.0, Amylase Level 52, Lipase 167 Height (Feet): 5 Height (Inches): 3.00 Weight (Pounds): 99 General Appearance: no apparent distress, alert, thin, alert oriented x3 EENT: PERRL/EOMI, normal ENT inspection Neck: normal alignment, supple, normal inspection Cardiovascular: normal peripheral pulses, normal rate, regular rhythm, no gallop/murmur, no JVD Respiratory/Chest: chest wall non-tender, lungs clear, normal breath sounds, no respiratory distress, no accessory muscle use Abdomen: normal bowel sounds, soft, no mass, tender - RUQ Pelvis: normal external exam Extremities: normal range of motion, non-tender Edema: no edema noted Arm (L), no edema noted Arm (R), no edema noted Leg (L), no edema noted Leg (R), no edema noted Pedal (L), no edema noted Pedal (R), no edema noted 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 Nov 22, 2019 11:53
--- NOTE | 2019-11-22 12:03 | Diagnostic Imaging Report ---
Indication: Syncope Technique: Grayscale and duplex images of the bilateral extracranial carotid and vertebral arteries Comparison: none Findings: Bilaterally, grayscale and duplex images demonstrate atherosclerotic plaquing resulting in less than 50% diameter narrowing. Normal Doppler flow velocities and waveforms. Patent bilateral vertebral arteries, antegrade flow Impression: Less than 50% diameter stenosis bilaterally All stenosis was measured based on the NASCET criteria. Velocity criteria are extrapolated from diameter data as defined by the Society of radiologists in ultrasound consensus conference. Radiology 2003:229; 340-346
--- NOTE | 2019-11-22 12:10 | Consultation ---
History of Present Illness General Chief Complaint: Generalized Weakness Present Illness Allergies: Coded Allergies: No Known Allergies (Unverified , 11/09/19) Medication History Scheduled Gabapentin (Neurontin), 300 MG ORAL THREE TIMES A DAY Insulin Regular, Human* (Novolin R*), 0 SUBQ .SLIDING SCALE, (Reported) Lisinopril* (Lisinopril*), Unknown Dose ORAL DAILY, (Reported) Metformin Hcl* (Metformin Hcl*), 1,000 MG ORAL BID Nitrofurantoin Monohyd/M-Cryst (Nitrofurantoin [place]-Mcr 100 mg), 100 MG ORAL Q12H Simvastatin (Zocor), Unknown Dose ORAL BEDTIME, (Reported) Durable Medical Equipment Walker (Ultra-Light Rollator), EACH , (DME) Patient History Healthcare decision maker Resuscitation status Advanced Directive on File Physical Exam Last 24 Hour Vital Signs Date Time Temp Pulse Resp B/P (MAP) Pulse Ox O2 Delivery O2 Flow Rate FiO2 11/22/19 09:36 98.4 11/22/19 09:00 Room Air 11/22/19 08:00 100.8 118 18 149/71 (97) 98 11/22/19 08:00 96 11/22/19 04:00 97.7 95 17 138/80 (99) 98 11/22/19 04:00 93 11/22/19 00:00 97.9 102 20 135/80 (98) 97 11/22/19 00:00 94 11/21/19 21:00 Room Air 11/21/19 20:00 97.9 92 19 139/64 (89) 97 11/21/19 20:00 98 11/21/19 16:38 85 86 92 11/21/19 16:00 98.4 85 20 137/67 (90) 99 Intake and Output 11/21/19 11/22/19 19:00 07:00 Intake Total 1600 ml 360 ml Balance 1600 ml 360 ml Intake Oral 600 ml 360 ml IV Total 1000 ml # Voids 3 2 Laboratory Tests Test 11/21/19 16:08 11/21/19 20:19 11/22/19 05:29 11/22/19 05:40 POC Whole Blood Glucose 243 MG/DL (74-106) H 201 MG/DL (74-106) H 215 MG/DL (74-106) H White Blood Count 4.4 K/UL (4.8-10.8) L Red Blood Count 3.59 M/UL (4.20-5.40) L Hemoglobin 10.3 G/DL (12.0-16.0) L Hematocrit 31.0 % (37.0-47.0) L Mean Corpuscular Volume 86 FL (80-99) Mean Corpuscular Hemoglobin 28.6 PG (27.0-31.0) Mean Corpuscular Hemoglobin Concent 33.1 G/DL (32.0-36.0) Red Cell Distribution Width 11.0 % (11.6-14.8) L Platelet Count 356 K/UL (150-450) Mean Platelet Volume 5.8 FL (6.5-10.1) L Neutrophils (%) (Auto) 53.2 % (45.0-75.0) Lymphocytes (%) (Auto) 38.5 % (20.0-45.0) Monocytes (%) (Auto) 5.5 % (1.0-10.0) Eosinophils (%) (Auto) 1.6 % (0.0-3.0) Basophils (%) (Auto) 1.1 % (0.0-2.0) Erythrocyte Sedimentation Rate 41 MM/HR (0-30) H Prothrombin Time 10.7 SEC (9.30-11.50) Prothromb Time International Ratio 1.0 (0.9-1.1) Activated Partial Thromboplast Time 27 SEC (23-33) Sodium Level 137 MMOL/L (136-145) Potassium Level 4.0 MMOL/L (3.5-5.1) Chloride Level 101 MMOL/L (98-107) Carbon Dioxide Level 26 MMOL/L (21-32) Anion Gap 10 mmol/L (5-15) Blood Urea Nitrogen 7 mg/dL (7-18) Creatinine 0.6 MG/DL (0.55-1.30) Estimat Glomerular Filtration Rate > 60 mL/min (>60) Glucose Level 210 MG/DL (74-106) H Calcium Level 9.0 MG/DL (8.5-10.1) Total Bilirubin 0.2 MG/DL (0.2-1.0) Aspartate Amino Transf (AST/SGOT) 9 U/L (15-37) L Alanine Aminotransferase (ALT/SGPT) 13 U/L (12-78) Alkaline Phosphatase 60 U/L (46-116) C-Reactive Protein, Quantitative 0.6 mg/dL (0.00-0.90) Total Protein 6.9 G/DL (6.4-8.2) Albumin 3.4 G/DL (3.4-5.0) Globulin 3.5 g/dL Albumin/Globulin Ratio 1.0 (1.0-2.7) Amylase Level 52 U/L (25-115) Lipase 167 U/L (73-393) Height (Feet): 5 Height (Inches): 3.00 Weight (Pounds): 99 Medications Current Medications Medications (Trade) Dose Ordered Sig/Jayro Route PRN Reason Start Time Stop Time Status Last Admin Dose Admin Acetaminophen (Tylenol) 650 mg Q4H PRN ORAL Mild Pain (Pain Scale 1-3) 11/20/19 19:15 12/20/19 19:14 11/22/19 09:06 Acetaminophen (Tylenol) 650 mg Q4H PRN ORAL Temp >100.5 11/20/19 19:15 12/20/19 19:14 Acetaminophen/ Hydrocodone Bitart ([place] 5/325) 1 tab Q8H PRN ORAL Moderate Pain (Pain Scale 4-6) 11/20/19 23:15 11/27/19 23:14 11/21/19 20:34 Bisacodyl (Dulcolax) 10 mg HSPRN PRN RECTAL Constipation 11/20/19 19:15 02/18/20 19:14 Dextrose (Dextrose 50%) 25 ml Q30M PRN IV Hypoglycemia 11/20/19 19:15 02/18/20 19:14 Dextrose (Dextrose 50%) 50 ml Q30M PRN IV Hypoglycemia 11/20/19 19:15 02/18/20 19:14 Diphenhydramine HCl (Benadryl) 25 mg Q6H PRN ORAL Itching/Pruritis 11/20/19 19:15 12/20/19 19:14 Escitalopram Oxalate (Lexapro) 10 mg DAILY ORAL 11/21/19 10:15 12/21/19 10:14 11/22/19 09:06 Insulin Aspart (NovoLOG) BEFORE MEALS AND HS SUBQ 11/21/19 16:30 02/19/20 16:29 11/22/19 11:15 Lactated Ringer's 1,000 ml @ 100 mls/hr Q10H IV 11/22/19 11:00 12/22/19 10:59 11/22/19 11:15 Magnesium Hydroxide (Mom) 30 ml HSPRN PRN ORAL Constipation 11/20/19 19:15 12/20/19 19:14 Metoclopramide HCl (Reglan) 10 mg Q6H PRN IVP Nausea & Vomiting 11/20/19 19:15 12/20/19 19:14 Polyethylene Glycol (Miralax) 17 gm HSPRN PRN ORAL Constipation 11/20/19 19:15 12/20/19 19:14 Assessment/Plan Assessment/Plan: Hematology Consultation REQ MD: Lake Wong RFC: Anemia, cancer screening DOS 11/22/19 ID [id number] diabetic thin female who presents back after suffering syncope episodes. She has a pmhx significant for DMT2 on supplemental insulin with neuropathy. Patient states since discharge she has suffered three syncope episodes. Happens during positional changes. Associated with dizziness. + LOC. Denies loss of bladder/bowel. They are witnessed. No head trauma. She denies having a history prior to November 2019. She remains using a walker for ambulation. Her overall neuropathy pain improved on gabapentin. Claims completed her antibiotic given on discharge. Allergies: No Known Allergies (Unverified , 11/09/19) COVID-19 Screening Contact w/high risk pt: No Recent Travel to affected area: No Experienced COVID-19 symptoms?: No Medication History Scheduled Gabapentin (Neurontin), 300 MG ORAL THREE TIMES A DAY Insulin Regular, Human* (Novolin R*), 0 SUBQ .SLIDING SCALE, (Reported) Lisinopril* (Lisinopril*), Unknown Dose ORAL DAILY, (Reported) Metformin Hcl* (Metformin Hcl*), 1,000 MG ORAL BID Nitrofurantoin Monohyd/M-Cryst (Nitrofurantoin [place]-Mcr 100 mg), 100 MG ORAL Q12H Simvastatin (Zocor), Unknown Dose ORAL BEDTIME, (Reported) Durable Medical Equipment Walker (Ultra-Light Rollator), EACH , (DME) Patient History Healthcare decision maker Resuscitation status Advanced Directive on File ROS Review of Systems Constitutional: Reports: weakness Eye: Reports: no symptoms ENT: Reports: no symptoms Respiratory: Reports: no symptoms Cardiovascular: Reports: no symptoms Gastrointestinal: Reports: nausea, vomiting Genitourinary: Reports: no symptoms Musculoskeletal: Reports: no symptoms Skin: Reports: no symptoms Psychiatric: Reports: no symptoms Neurological: Reports: no symptoms Endocrine: Reports: no symptoms Physical Exam General Appearance: WD/WN, no apparent distress, alert, thin HEENT: normocephalic, atraumatic Neck: non-tender, normal alignment, supple Respiratory/Chest: chest wall non-tender, lungs clear, normal breath sounds Cardiovascular/Chest: normal peripheral pulses, normal rate, regular rhythm Abdomen: normal bowel sounds, non tender Extremities: normal range of motion, non-tender, non-pitting, no edema Skin Exam: normal pigmentation, warm/dry Neurologic: vinyl cutter II-XII grossly normal, no motor/sensory deficits Labs: noted Imaging: reviewed Assessment/Plan: # Anemia of chronic disease due to underlying chronic medical issues, multifactorial v Gi bleed --> Anemia workup has been ordered, rule out gi bleed, does have mild iron deficiency --> No evidence of hemolysis is noted, peripheral smear has been reviewed. --> Hgb goal >7. Transfuse prn. --> iv iron started x 5 days --> Medications have been reviewed --> low threshold for gi evaluation in case has occult + also cea ordered --> bone marrow biopsy is not indicated given the other more likely causes -> hgb trend 10.3 # Leukopenia -- multiple etiologies could be related to underlying liver disease , medication-induced, infection versus viral syndrome --> peripheral smear has been ordered and does not show significant abnormalities --> Medications have been reviewed --> Continue to monitor for improvement, trend cbc --> Hep panel and HIV have been ordered --> US abd ordered to r/o cirrhosis and hepatosplenomegaly -> 3 mm gb polyp --> reverse isolation if ANC is <2000 -> wbc 4.4 # Orthostatic hypotension - possible autonomic dysfunction --> Poor PO intake --> Orthostatic VS continue to be positive after fluids --> cards eval # Chronic RUQ pain --> per surg # Gallbladder polyp # Loss of appetite - Oncology work up - Iron Panel -reviewed - ESR elevated - Age appropriate screenings such as coloscopy - Consult to hematology oncology # Uncontrolled DM # Neuropathy # Depression The timing of this note does not necessarily reflect the time of the patient was seen. Greatly appreciate consultation. Boston Keita MD Nov 22, 2019 12:10
[2019-11-22 12:54] VITALS: BP 138/75
--- NOTE | 2019-11-22 13:54 | Surgery Progress Note ---
Surgery Progress Note Subjective Additional Comments CT head noted US carotid noted labs stable no n/v/f/c Objective Last 24 Hour Vital Signs Date Time Temp Pulse Resp B/P (MAP) Pulse Ox O2 Delivery O2 Flow Rate FiO2 11/22/19 12:54 97.9 96 18 138/75 (96) 99 11/22/19 12:50 90 11/22/19 09:36 98.4 11/22/19 09:00 Room Air 11/22/19 08:00 100.8 118 18 149/71 (97) 98 11/22/19 08:00 96 11/22/19 04:00 97.7 95 17 138/80 (99) 98 11/22/19 04:00 93 11/22/19 00:00 97.9 102 20 135/80 (98) 97 11/22/19 00:00 94 11/21/19 21:00 Room Air 11/21/19 20:00 97.9 92 19 139/64 (89) 97 11/21/19 20:00 98 11/21/19 16:38 85 86 92 11/21/19 16:00 98.4 85 20 137/67 (90) 99 I&O Intake and Output 11/21/19 11/22/19 19:00 07:00 Intake Total 1600 ml 360 ml Balance 1600 ml 360 ml Intake Oral 600 ml 360 ml IV Total 1000 ml # Voids 3 2 Cardiovascular: RSR Respiratory: clear Abdomen: soft, non-tender, present bowel sounds Extremities: no tenderness, no cyanosis Laboratory Tests Test 11/21/19 16:08 11/21/19 20:19 11/22/19 05:29 11/22/19 05:40 POC Whole Blood Glucose 243 MG/DL (74-106) H 201 MG/DL (74-106) H 215 MG/DL (74-106) H White Blood Count 4.4 K/UL (4.8-10.8) L Red Blood Count 3.59 M/UL (4.20-5.40) L Hemoglobin 10.3 G/DL (12.0-16.0) L Hematocrit 31.0 % (37.0-47.0) L Mean Corpuscular Volume 86 FL (80-99) Mean Corpuscular Hemoglobin 28.6 PG (27.0-31.0) Mean Corpuscular Hemoglobin Concent 33.1 G/DL (32.0-36.0) Red Cell Distribution Width 11.0 % (11.6-14.8) L Platelet Count 356 K/UL (150-450) Mean Platelet Volume 5.8 FL (6.5-10.1) L Neutrophils (%) (Auto) 53.2 % (45.0-75.0) Lymphocytes (%) (Auto) 38.5 % (20.0-45.0) Monocytes (%) (Auto) 5.5 % (1.0-10.0) Eosinophils (%) (Auto) 1.6 % (0.0-3.0) Basophils (%) (Auto) 1.1 % (0.0-2.0) Erythrocyte Sedimentation Rate 41 MM/HR (0-30) H Prothrombin Time 10.7 SEC (9.30-11.50) Prothromb Time International Ratio 1.0 (0.9-1.1) Activated Partial Thromboplast Time 27 SEC (23-33) Sodium Level 137 MMOL/L (136-145) Potassium Level 4.0 MMOL/L (3.5-5.1) Chloride Level 101 MMOL/L (98-107) Carbon Dioxide Level 26 MMOL/L (21-32) Anion Gap 10 mmol/L (5-15) Blood Urea Nitrogen 7 mg/dL (7-18) Creatinine 0.6 MG/DL (0.55-1.30) Estimat Glomerular Filtration Rate > 60 mL/min (>60) Glucose Level 210 MG/DL (74-106) H Calcium Level 9.0 MG/DL (8.5-10.1) Total Bilirubin 0.2 MG/DL (0.2-1.0) Aspartate Amino Transf (AST/SGOT) 9 U/L (15-37) L Alanine Aminotransferase (ALT/SGPT) 13 U/L (12-78) Alkaline Phosphatase 60 U/L (46-116) C-Reactive Protein, Quantitative 0.6 mg/dL (0.00-0.90) Total Protein 6.9 G/DL (6.4-8.2) Albumin 3.4 G/DL (3.4-5.0) Globulin 3.5 g/dL Albumin/Globulin Ratio 1.0 (1.0-2.7) Amylase Level 52 U/L (25-115) Lipase 167 U/L (73-393) Carcinoembryonic Antigen Pending Plan Problems: (1) Syncope (2) Weakness (3) Acute kidney injury (nontraumatic) (4) Orthostatic hypotension (5) RUQ abdominal pain Assessment & Plan: diet as tolerated labs okay no n/v/f/c DAILY ESTIMATED NEEDS: Needs based on DM/ 45kg 25-30 kcals/kg 9133-9336 total kcals 1-1.5 g protein/kg 45-68 g total protein 25-30 mL/kg 4938-5120 total fluid mLs NUTRITION DIAGNOSIS: Altered nutrition related lab values R/T uncontrolled diabetes as evidenced by A1C of 9.5, w/ recent adm(11/08-11/10) A1C 9.0, w/ BG 310, U glu 3+, +hypo and hyperglycemia, POC glu (69, 68, 156, 180), no bed side BG noted at this time. CURRENT DIET: CCHO LOW PO DIET RECOMMENDATIONS: CCHO LOW + 1 carb snacks TID in b/w meals ADDITIONAL RECOMMENDATIONS: * Glucerna 1 tetra chula QD (added w/ dinner, pt may save it to have it as HS snack) * Encourage HS snack to prevent AM hypoglycemia * Rec bed side BG checks, h/o hypoglycemia * Standing wt and height as able (stated ht 4'11") * DM diet education and handout provided on recent adm 11/10 (6) Uncontrolled diabetes mellitus (7) Elevated lactic acid level (8) Depressed affect (9) UTI (urinary tract infection) (10) Transient hypotension (11) Gallbladder polyp Assessment & Plan: outpatient f/u 6 months for repeat US Liver: Liver diameter 13.5 cm. No visible parenchymal lesions. No intrahepatic biliary ductal dilatation. Gallbladder: 3 x 2 mm gallbladder polyp. No gallstones. No wall thickening. No pericholecystic fluid. Common bile duct: Common bile duct diameter 5.5 mm, within normal limits. Pancreas: Unremarkable as visualized. Pancreatic body and tail are obscured by bowel gas. Kidneys: Right kidney length of 11.4 cm. Left kidney length of 8.6 cm. Normal cortical thickness. No visible stones. No hydronephrosis. Spleen: Spleen length of 8.9 cm, within normal limits. Aorta: Unremarkable. Visualized portions appear unremarkable without evidence of aneurysm. Inferior vena cava: Unremarkable. Free fluid: None. IMPRESSION: 1. No acute findings. 2. 3 mm gallbladder polyp. Recommendations for 3 mm gallbladder polyp management: if the patient has risk factors* for gallbladder malignancy: follow- up ultrasound at 6 months, then yearly for 5 years. An increase in size = 2 mm: consider cholecystectomy if no risk factors for gallbladder malignancy: follow-up ultrasound at 1, 3 and 5 years *risk factors: >50 years, primary sclerosing cholangitis, [place] ethnicity, sessile polyp (including focal wall thickening >4 mm) Dayron Smith Nov 22, 2019 13:54
--- NOTE | 2019-11-22 14:53 | General Progress Note ---
Assessment/Plan Problem List: (1) Anemia ICD Codes: D64.9 - Anemia, unspecified SNOMED: 496013276 (2) Gallbladder polyp ICD Codes: K82.4 - Cholesterolosis of gallbladder SNOMED: 052807445 (3) UTI (urinary tract infection) ICD Codes: N39.0 - Urinary tract infection, site not specified SNOMED: 07023208 (4) Elevated lactic acid level ICD Codes: R79.89 - Other specified abnormal findings of blood chemistry SNOMED: 1283489 (5) RUQ abdominal pain ICD Codes: R10.11 - Right upper quadrant pain SNOMED: 577174318 (6) Syncope ICD Codes: R55 - Syncope and collapse SNOMED: 082466557 Qualifiers: Qualified Codes: R55 - Syncope and collapse Status: doing well, stable, progressing Assessment/Plan: hem in put appreciated fu H&H>>> stable fu stool ob GI procedures to be done as out patient fu surg recs regarding GB polyp Subjective Allergies: Coded Allergies: No Known Allergies (Unverified , 11/09/19) Objective Last 24 Hour Vital Signs Date Time Temp Pulse Resp B/P (MAP) Pulse Ox O2 Delivery O2 Flow Rate FiO2 11/22/19 12:54 97.9 96 18 138/75 (96) 99 11/22/19 12:50 90 11/22/19 09:36 98.4 11/22/19 09:00 Room Air 11/22/19 08:00 100.8 118 18 149/71 (97) 98 11/22/19 08:00 96 11/22/19 04:00 97.7 95 17 138/80 (99) 98 11/22/19 04:00 93 11/22/19 00:00 97.9 102 20 135/80 (98) 97 11/22/19 00:00 94 11/21/19 21:00 Room Air 11/21/19 20:00 97.9 92 19 139/64 (89) 97 11/21/19 20:00 98 11/21/19 16:38 85 86 92 11/21/19 16:00 98.4 85 20 137/67 (90) 99 Intake and Output 11/21/19 11/22/19 19:00 07:00 Intake Total 1600 ml 360 ml Balance 1600 ml 360 ml Intake Oral 600 ml 360 ml IV Total 1000 ml # Voids 3 2 Laboratory Tests 11/21/19 16:08: POC Whole Blood Glucose 243H 11/21/19 20:19: POC Whole Blood Glucose 201H 11/22/19 05:29: POC Whole Blood Glucose 215H 11/22/19 05:40: White Blood Count 4.4L, Red Blood Count 3.59L, Hemoglobin 10.3L, Hematocrit 31.0L, Mean Corpuscular Volume 86, Mean Corpuscular Hemoglobin 28.6, Mean Corpuscular Hemoglobin Concent 33.1, Red Cell Distribution Width 11.0L, Platelet Count 356, Mean Platelet Volume 5.8L, Neutrophils (%) (Auto) 53.2, Lymphocytes (%) (Auto) 38.5, Monocytes (%) (Auto) 5.5, Eosinophils (%) (Auto) 1.6, Basophils (%) (Auto) 1.1, Erythrocyte Sedimentation Rate 41H, Prothrombin Time 10.7, Prothromb Time International Ratio 1.0, Activated Partial Thromboplast Time 27, Sodium Level 137, Potassium Level 4.0, Chloride Level 101 , Carbon Dioxide Level 26, Anion Gap 10, Blood Urea Nitrogen 7, Creatinine 0.6, Estimat Glomerular Filtration Rate > 60, Glucose Level 210H, Calcium Level 9.0, Total Bilirubin 0.2, Aspartate Amino Transf (AST/SGOT) 9L, Alanine Aminotransferase (ALT/SGPT) 13, Alkaline Phosphatase 60, C-Reactive Protein, Quantitative 0.6, Total Protein 6.9, Albumin 3.4, Globulin 3.5, Albumin/ Globulin Ratio 1.0, Amylase Level 52, Lipase 167, Carcinoembryonic Antigen [ Pending] Height (Feet): 5 Height (Inches): 3.00 Weight (Pounds): 99 General Appearance: alert EENT: normal ENT inspection Neck: supple Cardiovascular: normal rate Respiratory/Chest: decreased breath sounds Abdomen: soft, hypoactive bowel sounds Extremities: non-tender Luis Manuel Miranda MD Nov 22, 2019 14:53
--- NOTE | 2019-11-22 15:30 | Cardiac Electrophysiology PN ---
Subjective Subjective [id number] Objective Last 24 Hour Vital Signs Date Time Temp Pulse Resp B/P (MAP) Pulse Ox O2 Delivery O2 Flow Rate FiO2 11/22/19 12:54 97.9 96 18 138/75 (96) 99 11/22/19 12:50 90 11/22/19 09:36 98.4 11/22/19 09:00 Room Air 11/22/19 08:00 100.8 118 18 149/71 (97) 98 11/22/19 08:00 96 11/22/19 04:00 97.7 95 17 138/80 (99) 98 11/22/19 04:00 93 11/22/19 00:00 97.9 102 20 135/80 (98) 97 11/22/19 00:00 94 11/21/19 21:00 Room Air 11/21/19 20:00 97.9 92 19 139/64 (89) 97 11/21/19 20:00 98 11/21/19 16:38 85 86 92 11/21/19 16:00 98.4 85 20 137/67 (90) 99 Intake and Output 11/21/19 11/22/19 19:00 07:00 Intake Total 1600 ml 360 ml Balance 1600 ml 360 ml Intake Oral 600 ml 360 ml IV Total 1000 ml # Voids 3 2 Laboratory Tests Test 11/21/19 16:08 11/21/19 20:19 11/22/19 05:29 11/22/19 05:40 POC Whole Blood Glucose 243 MG/DL (74-106) H 201 MG/DL (74-106) H 215 MG/DL (74-106) H White Blood Count 4.4 K/UL (4.8-10.8) L Red Blood Count 3.59 M/UL (4.20-5.40) L Hemoglobin 10.3 G/DL (12.0-16.0) L Hematocrit 31.0 % (37.0-47.0) L Mean Corpuscular Volume 86 FL (80-99) Mean Corpuscular Hemoglobin 28.6 PG (27.0-31.0) Mean Corpuscular Hemoglobin Concent 33.1 G/DL (32.0-36.0) Red Cell Distribution Width 11.0 % (11.6-14.8) L Platelet Count 356 K/UL (150-450) Mean Platelet Volume 5.8 FL (6.5-10.1) L Neutrophils (%) (Auto) 53.2 % (45.0-75.0) Lymphocytes (%) (Auto) 38.5 % (20.0-45.0) Monocytes (%) (Auto) 5.5 % (1.0-10.0) Eosinophils (%) (Auto) 1.6 % (0.0-3.0) Basophils (%) (Auto) 1.1 % (0.0-2.0) Erythrocyte Sedimentation Rate 41 MM/HR (0-30) H Prothrombin Time 10.7 SEC (9.30-11.50) Prothromb Time International Ratio 1.0 (0.9-1.1) Activated Partial Thromboplast Time 27 SEC (23-33) Sodium Level 137 MMOL/L (136-145) Potassium Level 4.0 MMOL/L (3.5-5.1) Chloride Level 101 MMOL/L (98-107) Carbon Dioxide Level 26 MMOL/L (21-32) Anion Gap 10 mmol/L (5-15) Blood Urea Nitrogen 7 mg/dL (7-18) Creatinine 0.6 MG/DL (0.55-1.30) Estimat Glomerular Filtration Rate > 60 mL/min (>60) Glucose Level 210 MG/DL (74-106) H Calcium Level 9.0 MG/DL (8.5-10.1) Total Bilirubin 0.2 MG/DL (0.2-1.0) Aspartate Amino Transf (AST/SGOT) 9 U/L (15-37) L Alanine Aminotransferase (ALT/SGPT) 13 U/L (12-78) Alkaline Phosphatase 60 U/L (46-116) C-Reactive Protein, Quantitative 0.6 mg/dL (0.00-0.90) Total Protein 6.9 G/DL (6.4-8.2) Albumin 3.4 G/DL (3.4-5.0) Globulin 3.5 g/dL Albumin/Globulin Ratio 1.0 (1.0-2.7) Amylase Level 52 U/L (25-115) Lipase 167 U/L (73-393) Carcinoembryonic Antigen Pending Microbiology Date/Time Source Procedure Growth Status 11/20/19 17:00 Blood Blood Culture - Preliminary NO GROWTH AFTER 24 HOURS Resulted 11/20/19 16:45 Blood Blood Culture - Preliminary NO GROWTH AFTER 24 HOURS Resulted Ashish Gonzalez MD Nov 22, 2019 15:30
[2019-11-22] MEDS: LR 1000ml 1,000 ML IV SCH (15:54)
[2019-11-22 16:00] VITALS: BP 147/76
[2019-11-22] MEDS ORDERED: HYDROcodone/Acetamin 5/325 tab ORAL PRN (16:00)
[2019-11-22] MEDS ORDERED: Metoclopramide 10mg/2ml Inj IVP PRN (16:00)
--- NOTE | 2019-11-22 17:15 | Consultation ---
DATE OF CONSULTATION: 11/22/2019 CARDIOLOGY CONSULTATION CONSULTING PHYSICIAN: Ashish Gonzalez MD. REFERRING PHYSICIAN: Timo Flores MD. REASON FOR CONSULTATION: Orthostatic hypotension and syncope. HISTORY OF PRESENT ILLNESS: Patient is a 49-year-old diabetic lady who was brought to the hospital after she had syncopal episodes. Patient has history of diabetes on insulin and also has neuropathy. Patient syncopal episodes since her discharge. Patient denies any loss of bowel or bladder control, however, these episodes are not witnessed. Patient was admitted and Cardiology consultation was obtained for further evaluation. REVIEW OF SYSTEMS: Negative other than what was mentioned in the history of present illness. PAST MEDICAL HISTORY: As mentioned above. FAMILY HISTORY: Noncontributory. MEDICATIONS: Insulin, lisinopril, metformin, Zocor, gabapentin. PHYSICAL EXAMINATION: VITAL SIGNS: Show blood pressure is 132/75, pulse 96, respirations 18, temperature 97.9. Max temperature was 100.8. HEAD AND NECK: Showed no JVD. LUNGS: Clear. CARDIOVASCULAR: Shows regular S1 and S2 with no gallop or murmur. ABDOMEN: Soft. EXTREMITIES: No pitting edema. LABORATORY AND DIAGNOSTIC DATA: Her EKG shows sinus rhythm with right atrial enlargement. Labs show white count of 4.4, hemoglobin 10.2, hematocrit 31, and platelet count is 356. Sodium 137, potassium 4.0, BUN of 7, creatinine 0.6. ASSESSMENT AND PLAN: 1. Orthostatic hypotension. Patient's first troponin is negative. We will repeat the cardiac enzymes. Her echocardiogram also showed ejection fraction of 60% to 65%. I will add midodrine to her medical regimen. Follow the patient closely. 2. Upper quadrant abdominal pain and anemia. Hemoglobin is stable. Follow the stool OB. Further evaluation by Dr. Miranda. 3. Diabetes, on insulin. Thank you very much for allowing me to participate in the care of this patient. Please do not hesitate to contact me for any questions regarding my evaluation. Ashish Gonzalez M.D. DR: LACHELLE JOB#: [id number] CC:
[2019-11-22] MEDS ORDERED: Milk of Magnesia 30ml Ud ORAL PRN (19:15)
[2019-11-22] MEDS ORDERED: Miralax 17gm pkt ORAL PRN (19:15)
[2019-11-22 20:00] VITALS: BP 143/75
[2019-11-22] MEDS ORDERED: Iron Sucrose 100 MG in NS 55 ML IVPB SCH (21:00)
[2019-11-22] MEDS ORDERED: Iron Sucrose 100 MG in NS 55 ML IV SCH (21:00)
--- NOTE | 2019-11-22 23:49 | Initial Psychiatric Evaluation ---
Psychiatry Consultation Psychiatry Consultation Chief Complaint: Generalized Weakness History of Present Illness: 49-year-old diabetic lady who was brought to the hospital after she had syncopal episodes. Patient has history of diabetes on insulin and also has neuropathy.the pt is depressed and anxious. the pt has no si/hi no psychotic sxs Allergies: Coded Allergies: No Known Allergies (Unverified , 11/09/19) Medication History Scheduled Escitalopram Oxalate* (Lexapro*), 10 MG ORAL DAILY Ferrous Sulfate (Ferrous Sulfate), 324 MG PO DAILY Gabapentin (Neurontin), 300 MG ORAL THREE TIMES A DAY Insulin Regular, Human* (Novolin R*), 0 SUBQ .SLIDING SCALE, (Reported) Metformin Hcl* (Metformin Hcl*), 1,000 MG ORAL BID Midodrine (Midodrine HCl), 5 MG ORAL TID Simvastatin (Zocor), Unknown Dose ORAL BEDTIME, (Reported) Discontinued Medications Lisinopril* (Lisinopril*), Unknown Dose ORAL DAILY, (Reported) Discontinued Reason: Therapy completed Nitrofurantoin Monohyd/M-Cryst (Nitrofurantoin [place]-Mcr 100 mg), 100 MG ORAL Q12H Discontinued Reason: Therapy completed Walker (Ultra-Light Rollator), EACH [facility], (DME) Discontinued Reason: Therapy completed Patient History History Provided By: Patient, Medical Record, PMD Objective Data Height (Feet): 5 Height (Inches): 3.00 Weight (Pounds): 99 Behavior Mannerisms: good eye contact Affect: constricted Mood: anxious Thought Process: logical Suicidal Ideation: not present Assessment/Plan Problem List: (1) MDD (major depressive disorder) ICD Codes: F32.9 - Major depressive disorder, single episode, unspecified SNOMED: 273078572 Diagnosis [place] I: cont antidepressants provided coni/Kavon Goode MD Nov 22, 2019 23:49
[2019-11-23] VITALS: BP 141/77
[2019-11-23] MEDS: LR 1000ml 1,000 ML IV SCH ×2 (01:00→12:00)
[2019-11-23 04:00] VITALS: BP 145/70
[2019-11-23] MEDS: NovoLOG Insulin Flexpen SUBQ SCH ×2 (05:59→12:03)
[2019-11-23 06:24] LABS: BASOPHILS % (AUTO) 1.2 % (0.0-2.0); EOSINOPHILS % (AUTO) 0.7 % (0.0-3.0); HEMATOCRIT 31.9 % (37.0-47.0); HEMOGLOBIN 10.8 G/DL (12.0-16.0); LYMPHOCYTES % (AUTO) 31.2 % (20.0-45.0); MEAN CORPUSCULAR VOLUME 86 FL (80-99); MONOCYTES % (AUTO) 6.6 % (1.0-10.0); NEUTROPHILS % (AUTO) 60.3 % (45.0-75.0); PLATELET COUNT 356 K/UL (150-450); RED BLOOD COUNT 3.72 M/UL (4.20-5.40); RED CELL DISTRIBUTION WIDTH 10.8 % (11.6-14.8); WHITE BLOOD COUNT 5.5 K/UL (4.8-10.8)
[2019-11-23 06:39] LABS: ALANINE AMINOTRANSFERASE 16 U/L (12-78); ALBUMIN 3.6 G/DL (3.4-5.0); ALKALINE PHOSPHATASE 61 U/L (46-116); ANION GAP 11 mmol/L (5-15); ASPARTATE AMINO TRANSFERASE 12 U/L (15-37); BILIRUBIN,TOTAL 0.2 MG/DL (0.2-1.0); BLOOD UREA NITROGEN 8 mg/dL (7-18); CALCIUM 9.4 MG/DL (8.5-10.1); CARBON DIOXIDE 27 MMOL/L (21-32); CHLORIDE 98 MMOL/L (98-107); CREATININE 0.6 MG/DL (0.55-1.30); POTASSIUM 4.3 MMOL/L (3.5-5.1); SODIUM 136 MMOL/L (136-145)
[2019-11-23 07:46] VITALS: BP 125/74
--- NOTE | 2019-11-23 10:18 | General Progress Note ---
Assessment/Plan Problem List: (1) Anemia ICD Codes: D64.9 - Anemia, unspecified SNOMED: 053891881 (2) Gallbladder polyp ICD Codes: K82.4 - Cholesterolosis of gallbladder SNOMED: 201240282 (3) UTI (urinary tract infection) ICD Codes: N39.0 - Urinary tract infection, site not specified SNOMED: 42397388 (4) Elevated lactic acid level ICD Codes: R79.89 - Other specified abnormal findings of blood chemistry SNOMED: 1309151 (5) RUQ abdominal pain ICD Codes: R10.11 - Right upper quadrant pain SNOMED: 366664706 (6) Syncope ICD Codes: R55 - Syncope and collapse SNOMED: 415429027 Qualifiers: Qualified Codes: R55 - Syncope and collapse Status: doing well, stable, progressing Assessment/Plan: hem in put appreciated fu H&H>>> stable fu stool ob GI procedures to be done as out patient fu surg recs regarding GB polyp Subjective ROS Limited/Unobtainable: No Allergies: Coded Allergies: No Known Allergies (Unverified , 11/09/19) Objective Last 24 Hour Vital Signs Date Time Temp Pulse Resp B/P (MAP) Pulse Ox O2 Delivery O2 Flow Rate FiO2 11/23/19 07:46 97.9 89 17 125/74 (91) 99 11/23/19 04:00 98.4 91 18 145/70 (95) 97 11/23/19 00:00 98.2 88 20 141/77 (98) 97 11/22/19 21:00 Room Air 11/22/19 20:00 97.9 87 20 143/75 (97) 98 11/22/19 16:00 98.1 96 18 147/76 (99) 96 11/22/19 12:54 97.9 96 18 138/75 (96) 99 11/22/19 12:50 90 Intake and Output 11/22/19 11/23/19 19:00 07:00 Intake Total 720 ml Balance 720 ml Intake Oral 720 ml # Voids 1 3 # Bowel Movements 1 Laboratory Tests 11/23/19 05:40: White Blood Count 5.5, Red Blood Count 3.72L, Hemoglobin 10.8L, Hematocrit 31.9L , Mean Corpuscular Volume 86, Mean Corpuscular Hemoglobin 29.1, Mean Corpuscular Hemoglobin Concent 33.9, Red Cell Distribution Width 10.8L, Platelet Count 356, Mean Platelet Volume 6.1L, Neutrophils (%) (Auto) 60.3, Lymphocytes (%) (Auto) 31.2, Monocytes (%) (Auto) 6.6, Eosinophils (%) (Auto) 0.7, Basophils (%) (Auto) 1.2, Sodium Level 136, Potassium Level 4.3, Chloride Level 98, Carbon Dioxide Level 27, Anion Gap 11, Blood Urea Nitrogen 8, Creatinine 0.6, Estimat Glomerular Filtration Rate > 60, Glucose Level 219H, Calcium Level 9.4, Total Bilirubin 0.2, Aspartate Amino Transf (AST/SGOT) 12L, Alanine Aminotransferase (ALT/SGPT) 16, Alkaline Phosphatase 61, Total Protein 7.2, Albumin 3.6, Globulin 3.6, Albumin/Globulin Ratio 1.0 11/23/19 06:00: Stool Occult Blood [Pending] Height (Feet): 5 Height (Inches): 3.00 Weight (Pounds): 99 General Appearance: no apparent distress EENT: normal ENT inspection Neck: supple Cardiovascular: normal rate Respiratory/Chest: decreased breath sounds Abdomen: normal bowel sounds, non tender, soft Extremities: non-tender Luis Manuel Miranda MD Nov 23, 2019 10:18
[2019-11-23] MEDS ORDERED: LEXAPRO10 MG ORAL (10:48)
[2019-11-23] MEDS ORDERED: FERROUS SULFAT324 MG PO (10:48)
[2019-11-23] MEDS ORDERED: PRO-AMATINE5 M1 ORAL (10:48)
--- NOTE | 2019-11-23 10:49 | Discharge Instructions ---
Discharge Instructions Discharge Instructions Call MD/Return to Hospital if: faint or confusion Diet: 4 GM sodium (no salt added), diabetic calorie control, high calorie protein Activity: light activity, ambulate w/ assist only, up w/ walker For Congestive Heart Failure Reminder When standing please get up slowly Eric Wong M.D. Nov 23, 2019 10:49
--- NOTE | 2019-11-23 11:09 | Discharge Summary ---
Discharge Summary Hospital Course Date of Admission Nov 20, 2019 at 15:37 Date of Discharge Admitting Diagnosis syncope/hypotension HPI Aliyah Cartagena is a 49 year old female who was admitted on Nov 20, 2019 at 15: 37 for Syncope/Hypotension Consultations General Surgery, GI, Hematology/Oncology, Psychiatry, Cardiology Hospital Course 49 year old female with a PMH of uncontrolled DM, Neuropathy come to the ED for syncope. Patients orthostatic vital signs were positive multiple times even after fluid resuscitation. She had CT head which was unremarkable. US abdomen showed 3mm gallbladder polyp which was evaluated by general surgery this should be followed up in 6 months by PCP. Carotic US was unremarkable. Echo was mostly unremarkable despite pulmonary HTN that will be followed by PCP. Given persistent orthostatic positive vital signs cardiology recommended that she be put on Midodrine 5mg TID. Orthostatic vital signs improved. With regards to patients chronic anemia she was started on Venofer. GI evaluated and recommended outpatient coloscopy. Psychiatry evaluated patient for depression and was started on Lexapro. No SI or HI. She will go home with family and case management will set up with new PCP. social worker is evaluating home safety. She will continue iron supplementation and midodrine. She will follow up outpatient with all consultants. Explained plan of care to her and ED precautions on when to return. She understood and felt comfortable going home with family. I spent 70 min on this discharge with extended advance care planing of 35 min. I preformed chart review and literature review. I coordinated whit many consultants. Discussed plan with RN and case management. Discharge Medications New Medications: Ferrous Sulfate (Ferrous Sulfate) 324 Mg Tablet. 324 MG PO DAILY for 28 Days, #30 TAB Escitalopram Oxalate* (Lexapro*) 10 Mg Tablet 10 MG ORAL DAILY for 30 Days, #30 TAB Midodrine (Midodrine HCl) 5 Mg Tablet 5 MG ORAL TID for 30 Days, #90 TAB Continued Medications: Gabapentin (Neurontin) 300 Mg Capsule 300 MG ORAL THREE TIMES A DAY for 30 Days, #90 CAP Insulin Regular, Human* (Novolin R*) 100 Unit/1 Ml Vial 0 SUBQ .SLIDING SCALE for DM, UNITS Metformin Hcl* (Metformin Hcl*) 1,000 Mg Tablet 1000 MG ORAL BID for 30 Days, #60 TAB Simvastatin (Zocor) 5 Mg Tablet Unknown Dose ORAL BEDTIME for cholesterol, TAB Discontinued Medications: Lisinopril* (Lisinopril*) 10 Mg Tablet Unknown Dose ORAL DAILY for HTN, TAB Discharge Condition Upon Discharge: stable Discharge Vital Signs Last Vital Signs Date Time Temp Pulse Resp B/P (MAP) Pulse Ox O2 Delivery O2 Flow Rate FiO2 11/23/19 07:46 97.9 89 17 125/74 (91) 99 11/22/19 21:00 Room Air Discharge Disposition Patient was discharged to Discharge Diagnoses: (1) Autonomic dysfunction with type 2 diabetes mellitus (2) Anemia (3) Syncope (4) Depressed affect (5) Gallbladder polyp (6) Uncontrolled diabetes mellitus (7) Orthostatic hypotension Discharge Instructions Discharge Instructions Call MD/Return to Hospital if: faint or confusion Activity: light activity, ambulate w/ assist only, up w/ walker Eric Wong M.D. Nov 23, 2019 11:09
--- NOTE | 2019-11-23 11:26 | Surgery Progress Note ---
Surgery Progress Note Subjective Symptoms: improved, tolerating diet, voiding well Objective Last 24 Hour Vital Signs Date Time Temp Pulse Resp B/P (MAP) Pulse Ox O2 Delivery O2 Flow Rate FiO2 11/23/19 07:46 97.9 89 17 125/74 (91) 99 11/23/19 04:00 98.4 91 18 145/70 (95) 97 11/23/19 00:00 98.2 88 20 141/77 (98) 97 11/22/19 21:00 Room Air 11/22/19 20:00 97.9 87 20 143/75 (97) 98 11/22/19 16:00 98.1 96 18 147/76 (99) 96 11/22/19 12:54 97.9 96 18 138/75 (96) 99 11/22/19 12:50 90 I&O Intake and Output 11/22/19 11/23/19 19:00 07:00 Intake Total 720 ml Balance 720 ml Intake Oral 720 ml # Voids 1 3 # Bowel Movements 1 Cardiovascular: RSR Respiratory: clear Abdomen: soft, non-tender, present bowel sounds, non-distended Extremities: no tenderness, no cyanosis Laboratory Tests Test 11/23/19 05:40 11/23/19 06:00 White Blood Count 5.5 K/UL (4.8-10.8) Red Blood Count 3.72 M/UL (4.20-5.40) L Hemoglobin 10.8 G/DL (12.0-16.0) L Hematocrit 31.9 % (37.0-47.0) L Mean Corpuscular Volume 86 FL (80-99) Mean Corpuscular Hemoglobin 29.1 PG (27.0-31.0) Mean Corpuscular Hemoglobin Concent 33.9 G/DL (32.0-36.0) Red Cell Distribution Width 10.8 % (11.6-14.8) L Platelet Count 356 K/UL (150-450) Mean Platelet Volume 6.1 FL (6.5-10.1) L Neutrophils (%) (Auto) 60.3 % (45.0-75.0) Lymphocytes (%) (Auto) 31.2 % (20.0-45.0) Monocytes (%) (Auto) 6.6 % (1.0-10.0) Eosinophils (%) (Auto) 0.7 % (0.0-3.0) Basophils (%) (Auto) 1.2 % (0.0-2.0) Sodium Level 136 MMOL/L (136-145) Potassium Level 4.3 MMOL/L (3.5-5.1) Chloride Level 98 MMOL/L (98-107) Carbon Dioxide Level 27 MMOL/L (21-32) Anion Gap 11 mmol/L (5-15) Blood Urea Nitrogen 8 mg/dL (7-18) Creatinine 0.6 MG/DL (0.55-1.30) Estimat Glomerular Filtration Rate > 60 mL/min (>60) Glucose Level 219 MG/DL (74-106) H Calcium Level 9.4 MG/DL (8.5-10.1) Total Bilirubin 0.2 MG/DL (0.2-1.0) Aspartate Amino Transf (AST/SGOT) 12 U/L (15-37) L Alanine Aminotransferase (ALT/SGPT) 16 U/L (12-78) Alkaline Phosphatase 61 U/L (46-116) Total Protein 7.2 G/DL (6.4-8.2) Albumin 3.6 G/DL (3.4-5.0) Globulin 3.6 g/dL Albumin/Globulin Ratio 1.0 (1.0-2.7) Stool Occult Blood Pending Plan Problems: (1) Syncope (2) Weakness (3) Acute kidney injury (nontraumatic) (4) Orthostatic hypotension (5) RUQ abdominal pain Assessment & Plan: diet as tolerated labs okay no n/v/f/c DAILY ESTIMATED NEEDS: Needs based on DM/ 45kg 25-30 kcals/kg 2565-7496 total kcals 1-1.5 g protein/kg 45-68 g total protein 25-30 mL/kg 8708-9715 total fluid mLs NUTRITION DIAGNOSIS: Altered nutrition related lab values R/T uncontrolled diabetes as evidenced by A1C of 9.5, w/ recent adm(11/08-11/10) A1C 9.0, w/ BG 310, U glu 3+, +hypo and hyperglycemia, POC glu (69, 68, 156, 180), no bed side BG noted at this time. [facility]: [facility] PO DIET RECOMMENDATIONS: [facility] + 1 carb snacks TID in b/w meals ADDITIONAL RECOMMENDATIONS: * Glucerna 1 tetra chula QD (added w/ dinner, pt may save it to have it as HS snack) * Encourage HS snack to prevent AM hypoglycemia * Rec bed side BG checks, h/o hypoglycemia * Standing wt and height as able (stated ht 4'11") * DM diet education and handout provided on recent adm 11/10 (6) Uncontrolled diabetes mellitus (7) Elevated lactic acid level (8) Depressed affect (9) UTI (urinary tract infection) (10) Transient hypotension (11) Gallbladder polyp Assessment & Plan: outpatient f/u 6 months for repeat US Liver: Liver diameter 13.5 cm. No visible parenchymal lesions. No intrahepatic biliary ductal dilatation. Gallbladder: 3 x 2 mm gallbladder polyp. No gallstones. No wall thickening. No pericholecystic fluid. Common bile duct: Common bile duct diameter 5.5 mm, within normal limits. Pancreas: Unremarkable as visualized. Pancreatic body and tail are obscured by bowel gas. Kidneys: Right kidney length of 11.4 cm. Left kidney length of 8.6 cm. Normal cortical thickness. No visible stones. No hydronephrosis. Spleen: Spleen length of 8.9 cm, within normal limits. Aorta: Unremarkable. Visualized portions appear unremarkable without evidence of aneurysm. Inferior vena cava: Unremarkable. Free fluid: None. IMPRESSION: 1. No acute findings. 2. 3 mm gallbladder polyp. Recommendations for 3 mm gallbladder polyp management: if the patient has risk factors* for gallbladder malignancy: follow- up ultrasound at 6 months, then yearly for 5 years. An increase in size = 2 mm: consider cholecystectomy if no risk factors for gallbladder malignancy: follow-up ultrasound at 1, 3 and 5 years *risk factors: >50 years, primary sclerosing cholangitis, [place] ethnicity, sessile polyp (including focal wall thickening >4 mm) Dayron Smith Nov 23, 2019 11:26
--- NOTE | 2019-11-23 11:45 | Hematology/Onc Progress Note ---
Assessment/Plan Assessment/Plan Assessment/Plan: # Anemia of chronic disease due to underlying chronic medical issues, multifactorial v Gi bleed --> Anemia workup has been ordered, rule out gi bleed, does have mild iron deficiency --> No evidence of hemolysis is noted, peripheral smear has been reviewed. --> Hgb goal >7. Transfuse prn. --> iv iron started x 5 days --> Medications have been reviewed --> low threshold for gi evaluation in case has occult + also cea 1.5 --> bone marrow biopsy is not indicated given the other more likely causes -> hgb trend 10.3-->10.8 # Leukopenia -- multiple etiologies could be related to underlying liver disease , medication-induced, infection versus viral syndrome --> peripheral smear has been ordered and does not show significant abnormalities --> Medications have been reviewed --> Continue to monitor for improvement, trend cbc --> Hep panel and HIV have been ordered --> US abd ordered to r/o cirrhosis and hepatosplenomegaly -> 3 mm gb polyp --> reverse isolation if ANC is <2000 -> wbc 4.4->5.5 # Orthostatic hypotension - possible autonomic dysfunction --> Poor PO intake --> Orthostatic VS continue to be positive after fluids --> cards eval # Chronic RUQ pain --> per surg # Gallbladder polyp # Loss of appetite --> imaging reviewed --> tumor markers prn # Uncontrolled DM # Neuropathy # Depression The timing of this note does not necessarily reflect the time of the patient was seen. Greatly appreciate consultation. Subjective Constitutional: Denies: no symptoms, chills, fever, malaise, weakness, other HEENT: Denies: no symptoms, eye pain, blurred vision, tearing, double vision, ear pain, ear discharge, nose pain, nose congestion, throat pain, throat swelling, mouth pain, mouth swelling, other Cardiovascular: Denies: no symptoms, chest pain, edema, irregular heart rate, lightheadedness, palpitations, syncope, other Gastrointestinal/Abdominal: Denies: no symptoms, abdomen distended, abdominal pain, black stools, tarry stools, blood in stool, constipated, diarrhea, difficulty swallowing, nausea, poor appetite, poor fluid intake, rectal bleeding , vomiting, other Genitourinary: Denies: no symptoms, burning, discharge, frequency, flank pain, hematuria, incontinence, pain, urgency, other Neurologic/Psychiatric: Denies: no symptoms, anxiety, depressed, emotional problems, headache, numbness, paresthesia, pre-existing deficit, seizure, tingling, tremors, weakness, other Endocrine: Denies: no symptoms, excessive sweating, flushing, intolerance to cold, intolerance to heat, increased hunger, increased thirst, increased urine, unexplained weight gain, unexplained weight loss, other Hematologic/Lymphatic: Denies: no symptoms, anemia, easy bleeding, easy bruising, adenopathy, other Allergies: Coded Allergies: No Known Allergies (Unverified , 11/09/19) Subjective 11/22 no bleeding, no night sweats, n fc hgb 10.8 wbc better Objective Objective Current Medications Medications (Trade) Dose Ordered Sig/Jayro Route PRN Reason Start Time Stop Time Status Last Admin Dose Admin Acetaminophen (Tylenol) 650 mg Q4H PRN ORAL Mild Pain (Pain Scale 1-3) 11/22/19 16:00 12/20/19 15:59 Acetaminophen (Tylenol) 650 mg Q4H PRN ORAL Temp >100.5 11/22/19 16:00 12/20/19 15:59 Acetaminophen/ Hydrocodone Bitart ([place] 5/325) 1 tab Q8H PRN ORAL Moderate Pain (Pain Scale 4-6) 11/22/19 16:00 11/27/19 15:59 Bisacodyl (Dulcolax) 10 mg HSPRN PRN RECTAL Constipation 11/22/19 19:15 02/18/20 19:14 Dextrose (Dextrose 50%) 25 ml Q30M PRN IV Hypoglycemia 11/22/19 15:45 02/18/20 19:14 Dextrose (Dextrose 50%) 50 ml Q30M PRN IV Hypoglycemia 11/22/19 15:45 02/18/20 19:14 Diphenhydramine HCl (Benadryl) 25 mg Q6H PRN ORAL Itching/Pruritis 11/22/19 16:00 12/20/19 15:59 Escitalopram Oxalate (Lexapro) 10 mg DAILY ORAL 11/23/19 09:00 12/21/19 10:14 11/23/19 09:21 Insulin Aspart (NovoLOG) BEFORE MEALS AND HS SUBQ 11/22/19 16:30 02/19/20 16:29 11/23/19 05:59 Iron Sucrose 100 mg/Sodium Chloride 60 ml @ 240 mls/hr BEDTIME IV 11/22/19 21:00 11/26/19 21:14 11/22/19 20:13 Lactated Ringer's 1,000 ml @ 100 mls/hr Q10H IV 11/22/19 16:00 12/22/19 15:59 11/23/19 01:00 Magnesium Hydroxide (Mom) 30 ml HSPRN PRN ORAL Constipation 11/22/19 19:15 12/20/19 19:14 Metoclopramide HCl (Reglan) 10 mg Q6H PRN IVP Nausea & Vomiting 11/22/19 16:00 12/20/19 15:59 11/23/19 07:37 Midodrine (Pro-Amatine) 5 mg TID ORAL 11/22/19 18:00 02/20/20 17:59 11/23/19 09:21 Polyethylene Glycol (Miralax) 17 gm HSPRN PRN ORAL Constipation 11/22/19 19:15 12/20/19 19:14 Quetiapine Fumarate (SEROqueL) 25 mg BEDTIME ORAL 11/23/19 00:00 01/07/20 00:00 11/23/19 01:00 Last 24 Hour Vital Signs Date Time Temp Pulse Resp B/P (MAP) Pulse Ox O2 Delivery O2 Flow Rate FiO2 11/23/19 07:46 97.9 89 17 125/74 (91) 99 11/23/19 04:00 98.4 91 18 145/70 (95) 97 11/23/19 00:00 98.2 88 20 141/77 (98) 97 11/22/19 21:00 Room Air 11/22/19 20:00 97.9 87 20 143/75 (97) 98 11/22/19 16:00 98.1 96 18 147/76 (99) 96 11/22/19 12:54 97.9 96 18 138/75 (96) 99 11/22/19 12:50 90 11/22/19 09:36 98.4 11/22/19 09:00 Room Air 11/22/19 08:00 100.8 118 18 149/71 (97) 98 11/22/19 08:00 96 11/22/19 04:00 97.7 95 17 138/80 (99) 98 11/22/19 04:00 93 11/22/19 00:00 97.9 102 20 135/80 (98) 97 11/22/19 00:00 94 11/21/19 21:00 Room Air 11/21/19 20:00 97.9 92 19 139/64 (89) 97 11/21/19 20:00 98 11/21/19 16:38 85 86 92 11/21/19 16:00 98.4 85 20 137/67 (90) 99 11/21/19 12:00 93 11/21/19 11:58 97.5 89 20 137/69 (91) 99 Intake and Output 11/22/19 11/23/19 19:00 07:00 Intake Total 720 ml Balance 720 ml Intake Oral 720 ml # Voids 1 3 # Bowel Movements 1 Labs Test 11/20/19 14:24 11/20/19 17:00 11/20/19 17:22 11/20/19 20:52 White Blood Count 8.6 K/UL (4.8-10.8) Red Blood Count 3.90 M/UL (4.20-5.40) Hemoglobin 11.3 G/DL (12.0-16.0) Hematocrit 34.0 % (37.0-47.0) Mean Corpuscular Volume 87 FL (80-99) Mean Corpuscular Hemoglobin 29.0 PG (27.0-31.0) Mean Corpuscular Hemoglobin Concent 33.3 G/DL (32.0-36.0) Red Cell Distribution Width 11.2 % (11.6-14.8) Platelet Count 453 K/UL (150-450) Mean Platelet Volume 6.0 FL (6.5-10.1) Neutrophils (%) (Auto) 67.5 % (45.0-75.0) Lymphocytes (%) (Auto) 22.2 % (20.0-45.0) Monocytes (%) (Auto) 7.7 % (1.0-10.0) Eosinophils (%) (Auto) 1.5 % (0.0-3.0) Basophils (%) (Auto) 1.1 % (0.0-2.0) Prothrombin Time 10.6 SEC (9.30-11.50) Prothromb Time International Ratio 1.0 (0.9-1.1) Activated Partial Thromboplast Time 24 SEC (23-33) Sodium Level 140 MMOL/L (136-145) Potassium Level 4.0 MMOL/L (3.5-5.1) Chloride Level 102 MMOL/L (98-107) Carbon Dioxide Level 29 MMOL/L (21-32) Anion Gap 9 mmol/L (5-15) Blood Urea Nitrogen 17 mg/dL (7-18) Creatinine 1.1 MG/DL (0.55-1.30) Estimat Glomerular Filtration Rate 52.4 mL/min (>60) Glucose Level 118 MG/DL (74-106) Hemoglobin A1c 9.5 % (4.3-6.0) Lactic Acid Level 2.70 mmol/L (0.4-2.0) 1.10 mmol/L (0.66-2.22) Calcium Level 9.8 MG/DL (8.5-10.1) Magnesium Level 1.5 MG/DL (1.8-2.4) Ferritin 56 NG/ML (8-388) Total Bilirubin 0.1 MG/DL (0.2-1.0) Aspartate Amino Transf (AST/SGOT) 10 U/L (15-37) Alanine Aminotransferase (ALT/SGPT) 14 U/L (12-78) Alkaline Phosphatase 67 U/L (46-116) Total Creatine Kinase 33 U/L (26-308) Troponin I 0.000 ng/mL (0.000-0.056) C-Reactive Protein, Quantitative 0.8 mg/dL (0.00-0.90) Pro-B-Type Natriuretic Peptide 34 pg/mL (0-125) Total Protein 7.6 G/DL (6.4-8.2) Albumin 3.8 G/DL (3.4-5.0) Globulin 3.8 g/dL Albumin/Globulin Ratio 1.0 (1.0-2.7) Triglycerides Level 73 MG/DL (30-150) Cholesterol Level 120 MG/DL (< 200) LDL Cholesterol 71 mg/dL (<100) HDL Cholesterol 37 MG/DL (40-60) Cholesterol/HDL Ratio 3.2 (3.3-4.4) Lipase 318 U/L (73-393) Thyroid Stimulating Hormone (TSH) 2.804 uiU/mL (0.358-3.740) Urine Color Yellow Urine Appearance Slightly cloudy Urine pH 5 (4.5-8.0) Urine Specific Alpha 1.010 (1.005-1.035) Urine Protein 1+ (NEGATIVE) Urine Glucose (UA) 4+ (NEGATIVE) Urine Ketones Negative (NEGATIVE) Urine Blood Negative (NEGATIVE) Urine Nitrite Negative (NEGATIVE) Urine Bilirubin Negative (NEGATIVE) Urine Urobilinogen Normal MG/DL (0.0-1.0) Urine Leukocyte Esterase Negative (NEGATIVE) Urine RBC 0 /HPF (0 - 2) Urine WBC 0-2 /HPF (0 - 2) Urine Squamous Epithelial Cells Moderate /LPF (NONE/OCC) Urine Bacteria Few /HPF (NONE) Urine Mucus Few /LPF (NONE/OCC) POC Whole Blood Glucose 101 MG/DL (74-106) Test 11/21/19 06:07 11/21/19 06:45 11/21/19 06:48 11/21/19 11:20 POC Whole Blood Glucose 143 MG/DL (74-106) White Blood Count 6.2 K/UL (4.8-10.8) Red Blood Count 3.56 M/UL (4.20-5.40) Hemoglobin 10.3 G/DL (12.0-16.0) Hematocrit 31.1 % (37.0-47.0) Mean Corpuscular Volume 87 FL (80-99) Mean Corpuscular Hemoglobin 28.9 PG (27.0-31.0) Mean Corpuscular Hemoglobin Concent 33.1 G/DL (32.0-36.0) Red Cell Distribution Width 11.4 % (11.6-14.8) Platelet Count 354 K/UL (150-450) Mean Platelet Volume 5.7 FL (6.5-10.1) Neutrophils (%) (Auto) 51.7 % (45.0-75.0) Lymphocytes (%) (Auto) 39.3 % (20.0-45.0) Monocytes (%) (Auto) 5.9 % (1.0-10.0) Eosinophils (%) (Auto) 1.8 % (0.0-3.0) Basophils (%) (Auto) 1.3 % (0.0-2.0) Sodium Level 141 MMOL/L (136-145) Potassium Level 4.2 MMOL/L (3.5-5.1) Chloride Level 106 MMOL/L (98-107) Carbon Dioxide Level 28 MMOL/L (21-32) Anion Gap 7 mmol/L (5-15) Blood Urea Nitrogen 16 mg/dL (7-18) Creatinine 0.7 MG/DL (0.55-1.30) Estimat Glomerular Filtration Rate > 60 mL/min (>60) Glucose Level 145 MG/DL (74-106) Calcium Level 9.2 MG/DL (8.5-10.1) Iron Level 51 ug/dL (50-175) Total Iron Binding Capacity 283 ug/dL (250-450) Percent Iron Saturation 18 % (15-50) Unsaturated Iron Binding 232 ug/dL (112-346) Erythrocyte Sedimentation Rate 33 MM/HR (0-30) Test 11/21/19 16:08 11/21/19 20:19 11/22/19 05:29 11/22/19 05:40 POC Whole Blood Glucose 243 MG/DL (74-106) 201 MG/DL (74-106) 215 MG/DL (74-106) White Blood Count 4.4 K/UL (4.8-10.8) Red Blood Count 3.59 M/UL (4.20-5.40) Hemoglobin 10.3 G/DL (12.0-16.0) Hematocrit 31.0 % (37.0-47.0) Mean Corpuscular Volume 86 FL (80-99) Mean Corpuscular Hemoglobin 28.6 PG (27.0-31.0) Mean Corpuscular Hemoglobin Concent 33.1 G/DL (32.0-36.0) Red Cell Distribution Width 11.0 % (11.6-14.8) Platelet Count 356 K/UL (150-450) Mean Platelet Volume 5.8 FL (6.5-10.1) Neutrophils (%) (Auto) 53.2 % (45.0-75.0) Lymphocytes (%) (Auto) 38.5 % (20.0-45.0) Monocytes (%) (Auto) 5.5 % (1.0-10.0) Eosinophils (%) (Auto) 1.6 % (0.0-3.0) Basophils (%) (Auto) 1.1 % (0.0-2.0) Erythrocyte Sedimentation Rate 41 MM/HR (0-30) Prothrombin Time 10.7 SEC (9.30-11.50) Prothromb Time International Ratio 1.0 (0.9-1.1) Activated Partial Thromboplast Time 27 SEC (23-33) Sodium Level 137 MMOL/L (136-145) Potassium Level 4.0 MMOL/L (3.5-5.1) Chloride Level 101 MMOL/L (98-107) Carbon Dioxide Level 26 MMOL/L (21-32) Anion Gap 10 mmol/L (5-15) Blood Urea Nitrogen 7 mg/dL (7-18) Creatinine 0.6 MG/DL (0.55-1.30) Estimat Glomerular Filtration Rate > 60 mL/min (>60) Glucose Level 210 MG/DL (74-106) Calcium Level 9.0 MG/DL (8.5-10.1) Total Bilirubin 0.2 MG/DL (0.2-1.0) Aspartate Amino Transf (AST/SGOT) 9 U/L (15-37) Alanine Aminotransferase (ALT/SGPT) 13 U/L (12-78) Alkaline Phosphatase 60 U/L (46-116) C-Reactive Protein, Quantitative 0.6 mg/dL (0.00-0.90) Total Protein 6.9 G/DL (6.4-8.2) Albumin 3.4 G/DL (3.4-5.0) Globulin 3.5 g/dL Albumin/Globulin Ratio 1.0 (1.0-2.7) Amylase Level 52 U/L (25-115) Lipase 167 U/L (73-393) Carcinoembryonic Antigen 1.5 ng/mL (0.0-4.7) Test 11/23/19 05:40 11/23/19 06:00 White Blood Count 5.5 K/UL (4.8-10.8) Red Blood Count 3.72 M/UL (4.20-5.40) Hemoglobin 10.8 G/DL (12.0-16.0) Hematocrit 31.9 % (37.0-47.0) Mean Corpuscular Volume 86 FL (80-99) Mean Corpuscular Hemoglobin 29.1 PG (27.0-31.0) Mean Corpuscular Hemoglobin Concent 33.9 G/DL (32.0-36.0) Red Cell Distribution Width 10.8 % (11.6-14.8) Platelet Count 356 K/UL (150-450) Mean Platelet Volume 6.1 FL (6.5-10.1) Neutrophils (%) (Auto) 60.3 % (45.0-75.0) Lymphocytes (%) (Auto) 31.2 % (20.0-45.0) Monocytes (%) (Auto) 6.6 % (1.0-10.0) Eosinophils (%) (Auto) 0.7 % (0.0-3.0) Basophils (%) (Auto) 1.2 % (0.0-2.0) Sodium Level 136 MMOL/L (136-145) Potassium Level 4.3 MMOL/L (3.5-5.1) Chloride Level 98 MMOL/L (98-107) Carbon Dioxide Level 27 MMOL/L (21-32) Anion Gap 11 mmol/L (5-15) Blood Urea Nitrogen 8 mg/dL (7-18) Creatinine 0.6 MG/DL (0.55-1.30) Estimat Glomerular Filtration Rate > 60 mL/min (>60) Glucose Level 219 MG/DL (74-106) Calcium Level 9.4 MG/DL (8.5-10.1) Total Bilirubin 0.2 MG/DL (0.2-1.0) Aspartate Amino Transf (AST/SGOT) 12 U/L (15-37) Alanine Aminotransferase (ALT/SGPT) 16 U/L (12-78) Alkaline Phosphatase 61 U/L (46-116) Total Protein 7.2 G/DL (6.4-8.2) Albumin 3.6 G/DL (3.4-5.0) Globulin 3.6 g/dL Albumin/Globulin Ratio 1.0 (1.0-2.7) Height (Feet): 5 Height (Inches): 3.00 Weight (Pounds): 99 Objective Physical Exam General Appearance: WD/WN, no apparent distress, alert, thin HEENT: normocephalic, atraumatic Neck: non-tender, normal alignment, supple Respiratory/Chest: chest wall non-tender, lungs clear, normal breath sounds Cardiovascular/Chest: normal peripheral pulses, normal rate, regular rhythm Abdomen: normal bowel sounds, non tender Extremities: normal range of motion, non-tender, non-pitting, no edema Skin Exam: normal pigmentation, warm/dry Neurologic: family physician II-XII grossly normal, no motor/sensory deficits Boston Keita MD Nov 23, 2019 11:45
[2019-11-23 12:00] VITALS: BP 121/68
--- NOTE | 2019-11-23 12:00 | Cardiac Electrophysiology PN ---
Assessment/Plan Assessment/Plan 1. Orthostatic hypotension. No [place]. Her echocardiogram also showed ejection fraction of 60% to 65%. I will add midodrine to her medical regimen. 2. Upper quadrant abdominal pain and anemia. Hemoglobin is stable. Follow the stool OB. Further evaluation by Dr. Miranda. 3. Diabetes, on insulin. Subjective Subjective No CP or SOB. Ate. Objective Last 24 Hour Vital Signs Date Time Temp Pulse Resp B/P (MAP) Pulse Ox O2 Delivery O2 Flow Rate FiO2 11/23/19 09:00 Room Air 11/23/19 07:46 97.9 89 17 125/74 (91) 99 11/23/19 04:00 98.4 91 18 145/70 (95) 97 11/23/19 00:00 98.2 88 20 141/77 (98) 97 11/22/19 21:00 Room Air 11/22/19 20:00 97.9 87 20 143/75 (97) 98 11/22/19 16:00 98.1 96 18 147/76 (99) 96 11/22/19 12:54 97.9 96 18 138/75 (96) 99 11/22/19 12:50 90 Intake and Output 11/22/19 11/23/19 19:00 07:00 Intake Total 720 ml 100 ml Balance 720 ml 100 ml Intake Oral 720 ml IV Total 100 ml # Voids 1 3 # Bowel Movements 1 Laboratory Tests Test 11/23/19 05:40 11/23/19 06:00 White Blood Count 5.5 K/UL (4.8-10.8) Red Blood Count 3.72 M/UL (4.20-5.40) L Hemoglobin 10.8 G/DL (12.0-16.0) L Hematocrit 31.9 % (37.0-47.0) L Mean Corpuscular Volume 86 FL (80-99) Mean Corpuscular Hemoglobin 29.1 PG (27.0-31.0) Mean Corpuscular Hemoglobin Concent 33.9 G/DL (32.0-36.0) Red Cell Distribution Width 10.8 % (11.6-14.8) L Platelet Count 356 K/UL (150-450) Mean Platelet Volume 6.1 FL (6.5-10.1) L Neutrophils (%) (Auto) 60.3 % (45.0-75.0) Lymphocytes (%) (Auto) 31.2 % (20.0-45.0) Monocytes (%) (Auto) 6.6 % (1.0-10.0) Eosinophils (%) (Auto) 0.7 % (0.0-3.0) Basophils (%) (Auto) 1.2 % (0.0-2.0) Sodium Level 136 MMOL/L (136-145) Potassium Level 4.3 MMOL/L (3.5-5.1) Chloride Level 98 MMOL/L (98-107) Carbon Dioxide Level 27 MMOL/L (21-32) Anion Gap 11 mmol/L (5-15) Blood Urea Nitrogen 8 mg/dL (7-18) Creatinine 0.6 MG/DL (0.55-1.30) Estimat Glomerular Filtration Rate > 60 mL/min (>60) Glucose Level 219 MG/DL (74-106) H Calcium Level 9.4 MG/DL (8.5-10.1) Total Bilirubin 0.2 MG/DL (0.2-1.0) Aspartate Amino Transf (AST/SGOT) 12 U/L (15-37) L Alanine Aminotransferase (ALT/SGPT) 16 U/L (12-78) Alkaline Phosphatase 61 U/L (46-116) Total Protein 7.2 G/DL (6.4-8.2) Albumin 3.6 G/DL (3.4-5.0) Globulin 3.6 g/dL Albumin/Globulin Ratio 1.0 (1.0-2.7) Stool Occult Blood Pending Microbiology Date/Time Source Procedure Growth Status 11/20/19 17:00 Blood Blood Culture - Preliminary NO GROWTH AFTER 48 HOURS Resulted 11/20/19 16:45 Blood Blood Culture - Preliminary NO GROWTH AFTER 48 HOURS Resulted Objective HEAD AND NECK: Showed no JVD. LUNGS: Clear. CARDIOVASCULAR: Shows regular S1 and S2 with no gallop or murmur. ABDOMEN: Soft. EXTREMITIES: No pitting edema. Ashish Gonzalez MD Nov 23, 2019 12:00
== END 2019-11-23 14:31 | disposition home or self-care (01) | DRG 204 ==
LOC: EMR 14:37 → 2E 15:37 → EDBEDREQ 17:16 → 4E 11-22 15:45
DX: I95.1 Orthostatic hypotension (principal); E11.65 Type 2 diabetes mellitus with hyperglycemia; N17.9 Acute kidney failure, unspecified; I27.20 Pulmonary hypertension, unspecified; E11.43 Type 2 diabetes mellitus with diabetic autonomic (poly)neuropathy; Z79.4 Long term (current) use of insulin; D64.9 Anemia, unspecified; K82.4 Cholesterolosis of gallbladder; R10.11 Right upper quadrant pain; G89.29 Other chronic pain
CPT/HCPCS: 36415; 70450; 71045; 76700; 80048; 80053; 80061; 81003; 82150; 82270; 82378; 82550; 82728; 82962; 83036; 83540; 83550; 83605; 83690; 83735; 83880; 84443; 84484; 85025; 85610; 85651; 85730; 86140; 87040; 93005; 93306; 93880; 96361; 96365; 96367; 96375; 99285; J1815; J2405; J2765; J7030